=== PATIENT | male | born 1940 | race Caucasian/White ===

== ENCOUNTER 2016-05-09 10:48 | Outpatient (CLI) | payer MEDICARE, OTHER | END 2016-05-09 10:49 | disposition home or self-care (01) | DX: Z00.00 Encounter for general adult medical examination without abnormal findings (principal); R73.01 Impaired fasting glucose; I10 Essential (primary) hypertension; R97.20 Elevated prostate specific antigen [PSA]; E83.52 Hypercalcemia ==

== ENCOUNTER 2020-01-27 08:00 | Outpatient (CLI) | payer MEDICARE, OTHER ==
[2020-01-27 18:12] LABS: BASOPHILS # (AUTO) 0.1 10^3/uL (0.0-0.1); BASOPHILS % (AUTO) 0.9 %; EOSINOPHILS # (AUTO) 0.1 10^3/uL (0.0-0.7); EOSINOPHILS % (AUTO) 1.8 %; HGB - HEMOGLOBIN 16.1 g/dL (14.0-18.0); LYMPHOCYTES # (AUTO) 1.8 10^3/uL (1.5-3.5); LYMPHOCYTES % (AUTO) 23.9 %; MEAN CORPUSCULAR HEMOGLOBIN 34.3 pg (27.0-31.0); MEAN CORPUSCULAR HGB CONC 34.6 g/dL (32.0-36.0); MEAN CORPUSCULAR VOLUME 99.1 fL (80.0-94.0); MEAN PLATELET VOLUME 9.5 fL (7.4-11.4); MONOCYTES # (AUTO) 0.5 10^3/uL (0.0-1.0); MONOCYTES % (AUTO) 6.6 %; NEUTROPHILS # (AUTO) 4.9 10^3/uL (1.5-6.6); NEUTROPHILS % (AUTO) 66.4 %; PLT - PLATELET COUNT 205 10^3/uL (130-450); RED BLOOD COUNT 4.69 10^6/uL (4.70-6.10); RED CELL DISTRIBUTION WIDTH 12.9 % (12.0-15.0); WHITE BLOOD COUNT 7.4 x10^3/uL (4.8-10.8)
[2020-01-27 18:30] LABS: ALBUMIN 4.2 g/dL (3.2-5.5); ALBUMIN/GLOBULIN RATIO 1.6 (1.0-2.2); ALKALINE PHOSPHATASE 45 IU/L (42-121); ALT ALANINE AMINOTRANSFERASE 22 IU/L (10-60); AST ASPARTATE AMINOTRANSFERASE 18 IU/L (10-42); BUN - BLOOD UREA NITROGEN 22 mg/dL (6-20); CARBON DIOXIDE - CO2 28 mmol/L (21-32); CHLORIDE 100 mmol/L (101-111); CHOL/HDL RATIO 2.7 (<5.0); CHOLESTEROL 188 mg/dL; CREATININE 0.8 mg/dL (0.6-1.2); GLUCOSE 100 mg/dL (70-100); HDL CHOLESTEROL 70 mg/dL; LDL CHOLESTEROL,CALCULATED 101 mg/dL; LDL/HDL RATIO 1.4 (<3.6); SODIUM 141 mmol/L (135-145); TOTAL PROTEIN 6.9 g/dL (6.7-8.2); VLDL CHOLESTEROL 17 mg/dL
[2020-01-27 18:58] LABS: HEMOGLOBIN A1c% 5.8 % (4.27-6.07)
== END 2020-01-27 23:59 | disposition home or self-care (01) ==
LOC: LAB.WCP 08:00
PROVIDERS: ATTEND Nurse Practitioner Family
DX: R73.01 Impaired fasting glucose (principal); E83.52 Hypercalcemia; I10 Essential (primary) hypertension
CPT/HCPCS: 36415; 80053; 80061; 83036; 83721; 84443; 85025

== ENCOUNTER 2020-10-06 06:46 | Day surgery (SDC) | payer MEDICARE, OTHER ==
[~2020-10-06 06:46] MED LIST: CYCLOPENTOLATE 1% OPHTH DROPS 2 ML ONE; KETOROLAC 0.45% OPHTH DROPS ONE; PHENYLEPHRINE 2.5% OPHTH 2 ML DROPS ONE; PROPARACAINE 0.5% OPHTH DROPS 15 ML ONE
[2020-10-06] MEDS ORDERED: LACTATED RINGERS 1,000 ML IV ONE (07:36)
--- NOTE | 2020-10-06 07:43 | ANESTHESIA ---
Pre-Anesthesia VS, & Labs - Diagnosis left eye nuclear sclerotic cataract - Procedure left eye cataract extraction with IOL implant Vital Signs: Temp Pulse Resp BP Pulse Ox 36 C L 72 20 139/61 H 98 10/06/20 07:00 10/06/20 07:00 10/06/20 07:00 10/06/20 07:00 10/06/20 07:00 Height: 5 ft 11 in Weight (kg): 85.4 kg Body Mass Index: 26.2 BMI Classification: Overweight - NPO >8 hours Home Medications and Allergies Home Medications: Ambulatory Orders Aspirin [Aspirin EC] 81 mg PO DAILY 10/05/20 Lisinopril [Zestril] 10 mg PO DAILY 10/05/20 Aspirin [Aspirin EC] 81 mg PO DAILY 10/05/20 Lisinopril [Zestril] 10 mg PO DAILY 10/05/20 Allergies/Adverse Reactions: Allergies Allergy/AdvReac Type Severity Reaction Status Date / Time No Known Drug Allergies Allergy Verified 10/06/20 07:41 Anes History & Medical History - Anesthetic History Anesthesia Complications: reports: No previous complications - Medical History Cardiovascular: reports: Hypertension Pulmonary: reports: None Gastrointestinal: reports: None Urinary: reports: None Neuro: reports: None Musculoskeletal: reports: None Endocrine/Autoimmune: reports: None Blood Disorders: reports: None Skin: reports: None Smoking Status: Former smoker Psychosocial: reports: Alcohol History of Cancer?: No - Surgical History Orthopedic: reports: Arthroscopic surgery Exam General: Alert, Oriented x3, Cooperative, No acute distress Dental: Poor dentition Mouth Openin Fingerbreadth Neck Mobility: Normal Mallampati classification: II Thyromental Distance: less than 4 cm Mental/Cognitive Status: Alert/Oriented X3, Normal for patient Plan Anesthesia Type: MAC Consent for Procedure(s) Verified and Reviewed: Yes Code Status: Attempt Resuscitation ASA classification: 2-Mild systemic disease Is this case an emergency?: No
[2020-10-06] MEDS ORDERED: fentaNYL 100 MCG/2 ML VIAL ONE (08:03)
[2020-10-06] MEDS ORDERED: MIDAZOLAM 2 MG/2 ML VIAL ONE (08:03)
[2020-10-06] MEDS ORDERED: BRIMONIDINE 0.2% OPHTH DROPS 5 ML OPTH ONE (08:10)
[2020-10-06] MEDS ORDERED: EPINEPHrine 1 MG/ML AMP IR ONE (08:10)
[2020-10-06] MEDS ORDERED: TIMOLOL 0.5% OPHTH DROPS OPTH ONE (08:10)
[2020-10-06] MEDS ORDERED: CHONDR SULF/HYALURONATE SYRINGE IO ONE (08:10)
[2020-10-06] MEDS ORDERED: PROPARACAINE 0.5% OPHTH DROPS 15 ML EACHEYE ONE (08:11)
[2020-10-06] MEDS ORDERED: TRIAMCIN/MOXIFLOX OPHTHALMIC 0.6 ML VIAL IO ONE ×2 (08:11→08:27)
[2020-10-06] MEDS ORDERED: BSS/LIDOCAINE/EPINEPHRINE 1 ML SYRINGE IO ONE (08:11)
[2020-10-06] MEDS ORDERED: VANCOMYCIN OPHTHALMI 8MG/0.8ML 8 MG/0.8 ML SYRINGE IO ONE ×2 (08:12→08:28)
[2020-10-06] MEDS ORDERED: LACTATED RINGERS 800 ML IV ONE (08:20)
[2020-10-06] MEDS ORDERED: EPINEPHrine 1 MG/ML AMP ONE (08:27)
[2020-10-06] MEDS ORDERED: TIMOLOL 0.5% OPHTH DROPS ONE (08:28)
[2020-10-06] MEDS ORDERED: BSS/LIDOCAINE/EPINEPHRINE 1 ML SYRINGE ONE (08:28)
[2020-10-06] MEDS ORDERED: BRIMONIDINE 0.2% OPHTH DROPS 5 ML ONE (08:28)
--- NOTE | 2020-10-06 08:31 | OPERATIVE REPORT ---
Operative Report - Other Other Information/Narrative: Date of Surgery: 10/06/20 Preop Dx: Visually significant cataract left eye. This was the first cataract surgery. Postop Dx: Same Procedure: Phacoemulsification with posterior chamber toric intraocular lens implant left eye Surgeon: Dr. Dilan Burrell Anesthesia: Monitored anesthesia care Complications: None Operative Indications: This is a 79-year-old M with progressive vision loss in the left eye due to 3-4+ nuclear sclerotic cataract. Best corrected visual acuity was 20/30 with glare to light-perception vision in the left eye. Indications for surgery were: - Overall decrease in vision - Difficulty seeing street signs - Difficulty seeing in low light or at night - Difficulty driving at night because of headlights from other vehicles - Difficulty with glare or bright lights in any situation The patient was consented at length concerning the risks and benefits of cataract surgery after which the patient expressed a desire to proceed with surgery. Operative Procedure: The patients cornea was marked in the pre-surgical area to indicate the axis for the toric intraocular lens. The patient was taken into OR#3 and placed under monitored anesthesia care. A surgical time-out was conducted confirming correct patient, correct procedure, and correct surgical site. The patient was given topical anesthesia and then prepped and draped in the usual sterile fashion. The eye was entered at the 6 and 3 oclock positions. Intracameral Shugarcaine was injected into the anterior chamber followed by a dispersive viscoelastic. A continuous-tear curvilinear capsulorhexis was performed. The nucleus was hydrodissected and phacoemulsified. The cortex was evacuated using automated infusion and aspiration. A cohesive viscoelastic was injected into the capsular bag and a 19.5 diopter toric intraocular lens was inserted into the bag and rotated to axis 092. Infusion and aspiration were used to evacuate the viscoelastic materials from the eye and the IOL was verified to remain on axis. The wounds were hydrated and the eye inflated to physiologic pressure using balanced salt solution. Approximately 0. 25ml of a mixture of triamcinolone and moxifloxacin was injected trans-sclerally into the vitreous in the inferotemporal quadrant using a 30 gauge cannula. An additional 0.55ml of a mixture of triamcinolone, moxifloxacin, and vancomycin was injected subconjunctivally in the superior quadrant for infection and inflammation prophylaxis. Wound integrity was checked with Weck-Jasmin sponges and the IOL axis was once again verified to be on the correct axis. The patient was taken from the operating room in good condition and given post-op instructions.
[2020-10-06 08:43] VITALS: BP 131/53
--- NOTE | 2020-10-06 09:06 | ANESTHESIA POST OP EVALUATION ---
Anesthesia Post Eval - Post Anesthesia Eval Vitals: Last Vital Signs Temp 36.3 C L 10/06/20 08:42 Pulse 72 10/06/20 08:42 Resp 15 10/06/20 08:42 BP 131/53 H 10/06/20 08:42 Pulse Ox 97 10/06/20 08:42 CV Function Including HR & BP: Stable Pain Control: Satisfactory Nausea & Vomiting: Negative Mental Status: Baseline Respiratory Status: Airway Patent Hydration Status: Satisfactory Anesthesia Complications: None
== END 2020-10-06 06:47 | disposition home or self-care (01) ==
LOC: SDS 06:46
PROVIDERS: ATTEND Ophthalmology
DX: H25.12 Age-related nuclear cataract, left eye (principal); Z87.891 Personal history of nicotine dependence
CPT/HCPCS: 66984; A9270; J3490; J7120; V2632; V2787

== ENCOUNTER 2021-03-02 06:56 | Day surgery (SDC) | payer MEDICARE, OTHER ==
[2021-03-02] MEDS ORDERED: LACTATED RINGERS 1,000 ML IV ONE (07:01)
--- NOTE | 2021-03-02 07:57 | ANESTHESIA ---
Pre-Anesthesia VS, & Labs - Diagnosis right eye cataract - Procedure right eye cataract extraction with IOL implant Vital Signs: Temp Pulse Resp BP Pulse Ox 36.3 C L 82 16 144/73 H 99 03/02/21 07:05 03/02/21 07:05 03/02/21 07:05 03/02/21 07:05 03/02/21 07:05 Height: 5 ft 9 in Weight (kg): 84.3 kg Body Mass Index: 27.4 BMI Classification: Overweight - NPO >8 hours Home Medications and Allergies Home Medications: Ambulatory Orders hydroCHLOROthiazide [Hydrodiuril] 25 mg PO DAILY 03/01/21 Aspirin [Aspirin EC] 81 mg PO DAILY 10/05/20 Lisinopril [Zestril] 10 mg PO DAILY 10/05/20 hydroCHLOROthiazide [Hydrodiuril] 25 mg PO DAILY 03/01/21 Allergies/Adverse Reactions: Allergies Allergy/AdvReac Type Severity Reaction Status Date / Time No Known Drug Allergies Allergy Verified 10/06/20 07:41 Anes History & Medical History - Anesthetic History Anesthesia Complications: reports: No previous complications - Medical History Cardiovascular: reports: Hypertension Pulmonary: reports: None Gastrointestinal: reports: None Urinary: reports: None Neuro: reports: None Musculoskeletal: reports: None Endocrine/Autoimmune: reports: None Blood Disorders: reports: None Skin: reports: None Smoking Status: Former smoker Psychosocial: reports: No issues indicated History of Cancer?: No - Surgical History Eyes Ears Nose Throat (EENT): reports: Cataracts Orthopedic: reports: Arthroscopic surgery Exam General: Alert, Oriented x3, Cooperative, No acute distress Dental: WNL Mouth Openin Fingerbreadth Neck Mobility: Normal Mallampati classification: III Thyromental Distance: 4-6 cm Mental/Cognitive Status: Alert/Oriented X3, Normal for patient Plan Anesthesia Type: MAC Consent for Procedure(s) Verified and Reviewed: Yes Code Status: Attempt Resuscitation ASA classification: 2-Mild systemic disease Is this case an emergency?: No
[2021-03-02] MEDS ORDERED: fentaNYL 100 MCG/2 ML VIAL ONE (08:14)
[2021-03-02] MEDS ORDERED: MIDAZOLAM 2 MG/2 ML VIAL ONE (08:14)
[2021-03-02] MEDS ORDERED: BRIMONIDINE 0.2% OPHTH DROPS 5 ML OPTH ONE (08:34)
[2021-03-02] MEDS ORDERED: EPINEPHrine 1 MG/ML AMP IR ONE (08:35)
[2021-03-02] MEDS ORDERED: TRIAMCIN/MOXIFLOX OPHTHALMIC 0.6 ML VIAL IO ONE ×3 (08:35→12:52)
[2021-03-02] MEDS ORDERED: TIMOLOL 0.5% OPHTH DROPS OPTH ONE (08:35)
[2021-03-02] MEDS ORDERED: BSS/LIDOCAINE/EPINEPHRINE 1 ML SYRINGE IO ONE (08:35)
[2021-03-02] MEDS ORDERED: PROPARACAINE 0.5% OPHTH DROPS 15 ML EACHEYE ONE (08:36)
[2021-03-02] MEDS ORDERED: VANCOMYCIN OPHTHALMI 8MG/0.8ML 8 MG/0.8 ML SYRINGE IO ONE (08:36)
[2021-03-02] MEDS ORDERED: LACTATED RINGERS 750 ML IV ONE (08:57)
[2021-03-02 09:19] VITALS: BP 144/52
--- NOTE | 2021-03-02 09:38 | OPERATIVE REPORT ---
Operative Report - Other Other Information/Narrative: Date of Surgery: 03/02/21 Preop Dx: Visually significant cataract right eye. Cataract surgery was performed in the left eye on . Postop Dx: Same Procedure: Phacoemulsification with posterior chamber toric intraocular lens implant right eye Surgeon: Dr. Dilan Burrell Anesthesia: Monitored anesthesia care Complications: None Operative Indications: This is a 80-year-old M with progressive vision loss in the right eye due to 3-4+ nuclear sclerotic cataract. Best corrected visual acuity was 20/30 with glare to light perception vision in the right eye. Indications for surgery were: - Overall decrease in vision - Difficulty seeing words on a computer screen - Difficulty seeing words, closed captions, or game scores on TV - Difficulty driving at night because of headlights from other vehicles - Difficulty with glare or bright lights in any situation The patient was consented at length concerning the risks and benefits of catarac t surgery after which the patient expressed a desire to proceed with surgery. Operative Procedure: The patients cornea was marked in the pre-surgical area to indicate the axis for the toric intraocular lens. The patient was taken into OR#3 and placed under monitored anesthesia care. A surgical time-out was conducted confirming correct patient, correct procedure, and correct surgical site. The patient was given topical anesthesia and then prepped and draped in the usual sterile fashion. The eye was entered at the 6 and 3 oclock positions. Intracameral Shugarcaine was injected into the anterior chamber followed by a dispersive viscoelastic. A continuous-tear curvilinear capsulorhexis was performed. The nucleus was hydrodissected and phacoemulsified. The cortex was evacuated using automated infusion and aspiration. A cohesive viscoelastic was injected into the capsular bag and a 20.0 diopter toric intraocular lens was inserted into the bag and rotated to axis 084. Infusion and aspiration were used to evacuate the viscoelastic materials from the eye and the IOL was verified to remain on axis. The wounds were hydrated and the eye inflated to physiologic pressure using balanced salt solution. Approximately 0.25ml of a mixture of triamcinolone and moxifloxacin was injected trans- sclerally into the vitreous in the inferotemporal quadrant using a 30 gauge cannula. An additional 0.55ml of a mixture of triamcinolone and moxifloxacin was injected subconjunctivally in the superior quadrant for infection and inflammation prophylaxis. Wound integrity was checked with Weck-Jasmin sponges and the IOL axis was once again verified to be on the correct axis. The patient was taken from the operating room in good condition and given post-op instructions.
--- NOTE | 2021-03-02 10:06 | ANESTHESIA POST OP EVALUATION ---
Anesthesia Post Eval - Post Anesthesia Eval Vitals: Last Vital Signs Temp 36.5 C 03/02/21 09:15 Pulse 87 03/02/21 09:15 Resp 18 03/02/21 09:15 BP 144/52 H 03/02/21 09:15 Pulse Ox 99 03/02/21 09:15 CV Function Including HR & BP: Stable Pain Control: Satisfactory Nausea & Vomiting: Negative Mental Status: Baseline Respiratory Status: Airway Patent Hydration Status: Satisfactory Anesthesia Complications: None
[2021-03-02] MEDS ORDERED: BRIMONIDINE 0.2% OPHTH DROPS 5 ML ONE (12:52)
[2021-03-02] MEDS ORDERED: TIMOLOL 0.5% OPHTH DROPS ONE (12:52)
== END 2021-03-02 06:57 | disposition home or self-care (01) ==
LOC: SDS 06:56
PROVIDERS: ATTEND Ophthalmology
DX: H25.11 Age-related nuclear cataract, right eye (principal); Z98.42 Cataract extraction status, left eye; Z87.891 Personal history of nicotine dependence
CPT/HCPCS: 66984; A9270; J3490; J7120; V2632; V2787

== ENCOUNTER 2021-03-02 19:30 | Outpatient (CLI) | payer MEDICARE, OTHER | END 2021-03-02 19:31 | disposition critical access hospital (66) | LOC: EMS 19:30 | DX: S50.311A Abrasion of right elbow, initial encounter (principal); W22.8XXA Striking against or struck by other objects, initial encounter; Y92.009 Unspecified place in unspecified non-institutional (private) residence as the place of occurrence of the external cause; R44.1 Visual hallucinations | CPT/HCPCS: A0425; A0429 ==

== ENCOUNTER 2021-03-02 19:50 | Emergency (ER) | payer MEDICARE, OTHER ==
[2021-03-02 20:29] LABS: BASOPHILS % (AUTO) 0.3 %; EOSINOPHILS # (AUTO) 0.1 10^3/uL (0.0-0.7); EOSINOPHILS % (AUTO) 0.6 %; HGB - HEMOGLOBIN 15.5 g/dL (14.0-18.0); LYMPHOCYTES # (AUTO) 1.1 10^3/uL (1.5-3.5); LYMPHOCYTES % (AUTO) 12.1 %; MEAN CORPUSCULAR HEMOGLOBIN 34.4 pg (27.0-31.0); MEAN CORPUSCULAR HGB CONC 35.2 g/dL (32.0-36.0); MEAN CORPUSCULAR VOLUME 97.6 fL (80.0-94.0); MEAN PLATELET VOLUME 8.8 fL (7.4-11.4); MONOCYTES # (AUTO) 0.6 10^3/uL (0.0-1.0); NEUTROPHILS # (AUTO) 7.6 10^3/uL (1.5-6.6); NEUTROPHILS % (AUTO) 80.7 %; PLT - PLATELET COUNT 186 10^3/uL (130-450); RED BLOOD COUNT 4.51 10^6/uL (4.70-6.10); RED CELL DISTRIBUTION WIDTH 12.7 % (12.0-15.0); WHITE BLOOD COUNT 9.4 x10^3/uL (4.8-10.8)
[2021-03-02 21:00] LABS: ACETAMINOPHEN < 10 ug/mL (10-30); ALBUMIN 4.3 g/dL (3.2-5.5); ALBUMIN/GLOBULIN RATIO 1.7 (1.0-2.2); ALKALINE PHOSPHATASE 48 IU/L (42-121); ALT ALANINE AMINOTRANSFERASE 19 IU/L (10-60); AST ASPARTATE AMINOTRANSFERASE 21 IU/L (10-42); BILIRUBIN,TOTAL 1.7 mg/dL (0.2-1.0); BUN - BLOOD UREA NITROGEN 27 mg/dL (6-20); CALCIUM 9.4 mg/dL (8.5-10.3); CARBON DIOXIDE - CO2 27 mmol/L (21-32); CHLORIDE 99 mmol/L (101-111); CREATININE 0.9 mg/dL (0.6-1.2); ETOH - ETHANOL < 5.0 mg/dL; GFR - MDRD 81 (>89); GLUCOSE 120 mg/dL (70-100); LIPASE 20 U/L (22-51); POTASSIUM 4.1 mmol/L (3.5-5.0); SALICYLATE < 6.0 mg/dL; SODIUM 139 mmol/L (135-145); TOTAL PROTEIN 6.8 g/dL (6.7-8.2)
--- NOTE | 2021-03-02 22:33 | CT Report ---
PROCEDURE: HEAD WO INDICATIONS: Altered mental status. LOC after fall TECHNIQUE: Noncontrast 4.5 mm thick angled axial sections acquired from the foramen magnum to the vertex. For r adiation dose reduction, the following was used: automated exposure control, adjustment of mA and/or kV according to patient size. COMPARISON: None. FINDINGS: Image quality: Excellent. CSF spaces: Basal cisterns are patent. No extra-axial fluid collections. Ventricles are prominent. Brain: No midline shift. No intracranial masses or hemorrhage. No area of hypodensity in a large va scular distribution to suggest acute infarction. Periventricular hypodensity consistent with chronic microvascular ischemic disease. Age related, loss. Skull and face: Calvarium and visualized facial bones are intact, without suspicious lesions. Sinuses: Visualized sinuses and mastoids are clear. IMPRESSION: No acute intracranial abnormality. Reviewed by: Sharad Azevedo MD on 03/02/2021 10:32 PM PST Approved by: Sharad Azevedo MD on 03/02/2021 10:32 PM PST Station ID: [id number]
--- NOTE | 2021-03-02 22:38 | ED Physician Documentation ---
PD HPI ALTERED MENTAL STATUS - Stated complaint Stated Complaint: AMS - Chief complaint Chief Complaint: Neuro - History obtained from History obtained from: Patient - History of Present Illness Timing - onset: Today Timing - duration: Hours Timing - details: Gradual onset, Still present Quality / character: Confused, Disoriented, Hallucinating Associated symptoms: No: Fever, Headache, Stiff neck, Dyspnea, Cough, NVD, Urinary sx, General weakness, Focal weakness, Seizure activity, Syncope Contributing factors: Other (had cataract surgery this morning) Basline status: Alert and oriented X 3, Ambulatory, Independent Similar symptoms before: Diagnosis (had symptoms once previously 12 years ago related to medications) Recently seen: Surgery - Additional information Additional information: 80-year-old male with history of depression and hypertension had a cataract surgery done on his right eye this morning and he received some Versed for that. He apparently did well with this and was taken home by his [id number]. The patient states that he was at his home this afternoon and noted that his was sitting with a blank stare and she would not respond to them. He states that he went outside to find help and knocked on the neighbors door and they called 911 as they were aware that his had been for maybe 20 years. The patient states he knows she is having some hallucination he is having some trouble with his memory today and he does not have a prior history of dementia to our knowledge. Indicates he has had a similar incident may be 12 years ago. Review of Systems Constitutional: denies: Fever Eyes: reports: Decreased vision (in right eye recovering from surgery) Ears: denies: Ear pain Nose: denies: Rhinorrhea / runny nose, Congestion Throat: denies: Sore throat Cardiac: denies: Chest pain / pressure, Palpitations Respiratory: denies: Dyspnea, Cough GI: denies: Abdominal Pain, Nausea, Vomiting : denies: Dysuria Skin: denies: Rash Musculoskeletal: denies: Neck pain, Back pain, Extremity pain Neurologic: denies: Generalized weakness, Focal weakness, Numbness Psychiatric: reports: Depressed, Hallucinations, Anxiety. denies: Suicidal, Homicidal PD PAST MEDICAL HISTORY - Past Medical History Past Medical History: Yes Cardiovascular: Hypertension Respiratory: None Neuro: None Endocrine/Autoimmune: None GI: None : None HEENT: None Psych: None Musculoskeletal: None Derm: None - Past Surgical History Past Surgical History: Yes Ortho: Arthroscopic surgery HEENT: Cataracts - Present Medications Home Medications: Ambulatory Orders Medication Instructions Recorded Confirmed Aspirin [Aspirin EC] 81 mg PO DAILY 10/05/20 03/02/21 Lisinopril [Zestril] 10 mg PO DAILY 10/05/20 03/02/21 hydroCHLOROthiazide [Hydrodiuril] 25 mg PO DAILY 03/01/21 03/02/21 - Allergies Allergies/Adverse Reactions: Allergies Allergy/AdvReac Type Severity Reaction Status Date / Time No Known Drug Allergies Allergy Verified 03/02/21 20:05 - Social History Does the pt smoke?: No Smoking Status: Former smoker Does the pt drink ETOH?: Yes Does the pt have substance abuse?: No PD ED PE NORMAL - Vitals Vital signs reviewed: Yes (wide pulse pressure ) - General General: Alert and oriented X 3, No acute distress, Well developed/nourished - HEENT HEENT: Atraumatic, Other (right eye is dilated) - Neck Neck: Supple, no meningeal sign, No bony TTP - Cardiac Cardiac: RRR, No murmur - Respiratory Respiratory: No respiratory distress, Clear bilaterally - Abdomen Abdomen: Soft, Non tender - Back Back: No CVA TTP, No spinal TTP - Derm Derm: Normal color, No rash - Extremities Extremities: No deformity, No edema - Neuro Neuro: Alert and oriented X 3, supervisor burling and joining 2-12 intact, No motor deficit, No sensory deficit, Normal speech Eye Opening: Spontaneous Motor: Obeys Commands Verbal: Oriented GCS Score: 15 - Psych Psych: Normal mood, Normal affect Results - Vitals Vitals: Vital Signs - 24 hr 03/02/21 03/02/21 03/03/21 19:58 22:38 00:00 Temperature 36.4 C L Heart Rate 89 94 79 Respiratory 17 19 17 Rate Blood Pressure 100/49 L 138/117 H 113/65 O2 Saturation 95 100 96 03/03/21 03/03/21 03/03/21 02:00 04:00 06:00 Temperature Heart Rate 75 76 89 Respiratory 16 17 20 Rate Blood Pressure 114/48 L 142/86 H 163/108 H O2 Saturation 98 98 98 03/03/21 07:35 Temperature Heart Rate 88 Respiratory 21 Rate Blood Pressure 158/71 H O2 Saturation 96 Oxygen O2 Source Room air - EKG (time done) 2111 Rate: Rate (enter#) (72) Rhythm: NSR [place]: Anterior hemiblock Intervals: RBBB Compare to prior EKG: Old EKG unavailable Computer interpretation: Agree with computer - Labs Labs: Laboratory Tests 03/02/21 03/02/21 03/02/21 20:24 20:24 20:24 WBC 9.4 RBC 4.51 L Hgb 15.5 Hct 44.0 MCV 97.6 H MCH 34.4 H MCHC 35.2 RDW 12.7 Plt Count 186 MPV 8.8 Neut # (Auto) 7.6 H Lymph # (Auto) 1.1 L Fajardo # (Auto) 0.6 Eos # (Auto) 0.1 Baso # (Auto) 0.0 Absolute Nucleated RBC 0.00 Nucleated RBC % 0.0 Sodium 139 Potassium 4.1 Chloride 99 L Carbon Dioxide 27 Anion Gap 13.0 BUN 27 H Creatinine 0.9 Estimated GFR (MDRD) 81 L Glucose 120 H Calcium 9.4 Total Bilirubin 1.7 H AST 21 ALT 19 Alkaline Phosphatase 48 Total Protein 6.8 Albumin 4.3 Globulin 2.5 Albumin/Globulin Ratio 1.7 Lipase 20 L TSH 0.95 Urine Color Urine Clarity Urine pH Ur Specific [place] Urine Protein Urine Glucose (UA) Urine Ketones Urine Occult Blood Urine Nitrite Urine Bilirubin Urine Urobilinogen Ur Leukocyte Esterase Ur Microscopic Review Urine Culture Comments Salicylates < 6.0 Urine Opiates Screen Ur Oxycodone Screen Urine Methadone Screen Ur Propoxyphene Screen Acetaminophen < 10 L Ur Barbiturates Screen Ur Tricyclics Screen Ur Phencyclidine Scrn Ur Amphetamine Screen U Methamphetamines Scrn U Benzodiazepines Scrn Urine Cocaine Screen U Cannabinoids Screen Ethyl Alcohol < 5.0 03/03/21 00:35 WBC RBC Hgb Hct MCV MCH MCHC RDW Plt Count MPV Neut # (Auto) Lymph # (Auto) Fajardo # (Auto) Eos # (Auto) Baso # (Auto) Absolute Nucleated RBC Nucleated RBC % Sodium Potassium Chloride Carbon Dioxide Anion Gap BUN Creatinine Estimated GFR (MDRD) Glucose Calcium Total Bilirubin AST ALT Alkaline Phosphatase Total Protein Albumin Globulin Albumin/Globulin Ratio Lipase TSH Urine Color YELLOW Urine Clarity CLEAR Urine pH 5.5 Ur Specific [place] >=1.030 H Urine Protein NEGATIVE Urine Glucose (UA) NEGATIVE Urine Ketones >=80 H Urine Occult Blood NEGATIVE Urine Nitrite NEGATIVE Urine Bilirubin NEGATIVE Urine Urobilinogen 1 (NORMAL) Ur Leukocyte Esterase NEGATIVE Ur Microscopic Review NOT INDICATED Urine Culture Comments NOT INDICATED Salicylates Urine Opiates Screen NEGATIVE Ur Oxycodone Screen NEGATIVE Urine Methadone Screen NEGATIVE Ur Propoxyphene Screen NEGATIVE Acetaminophen Ur Barbiturates Screen NEGATIVE Ur Tricyclics Screen NEGATIVE Ur Phencyclidine Scrn NEGATIVE Ur Amphetamine Screen NEGATIVE U Methamphetamines Scrn NEGATIVE U Benzodiazepines Scrn NEGATIVE Urine Cocaine Screen NEGATIVE U Cannabinoids Screen NEGATIVE Ethyl Alcohol - Rads (name of study) head cT Radiology: Prelim report reviewed (Impression: No acute intracranial abnormality.), EMP read indepedently, See rad report PD MEDICAL DECISION MAKING - ED course Complexity details: reviewed results, re-evaluated patient, considered differential, d/w patient ED course: 80 y/o male with confusion after a surgical procedure has been brought to the hospital by ambulance with hallucinations. He is able to answer person place time and president with some effort. He does appear to have some speech latency and delay in execution of motor commands. He was able to speak to his son who has requested we keep him overnight in the ED to see the case management social worker for additional resources. We obtained CT of the head and baseline blood work and administered IV saline. At shift change the patients care is turned over to Dr. Plasencia pending evaluation by case management social worker. Departure - Departure Clinical Impression: Altered mental status Qualifiers: Altered mental status type: disorientation Qualified Code(s): R41.0 - Disorientation, unspecified Condition: Stable Instructions: ED Confusion Follow-Up: HAYDEN Maed [Provider Group]
[2021-03-03 00:42] LABS: MUDS CUTOFF CONCENTRATIONS CUTOFF CONC BELOW:
[2021-03-03 00:43] LABS: BILIRUBIN,URINE NEGATIVE (NEGATIVE); GLUCOSE, URINE (UA) NEGATIVE (NEGATIVE); KETONES,URINE (UA) >=80 mg/dL (NEGATIVE); LEUKOCYTE ESTERASE, URINE NEGATIVE (NEGATIVE); NITRITE,URINE NEGATIVE (NEGATIVE); OCCULT BLOOD,URINE NEGATIVE (NEGATIVE); PH,URINE 5.5 PH (5.0-7.5); PROTEIN,URINE NEGATIVE (NEGATIVE); UROBILINOGEN,URINE 1 (NORMAL) E.U./dL (NORMAL)
[2021-03-03 00:44] LABS: CLARITY,URINE CLEAR (CLEAR)
[2021-03-03 00:54] LABS: AMPHETAMINE SCREEN,URINE NEGATIVE (NEGATIVE); BARBITURATE SCREEN,UR NEGATIVE (NEGATIVE); BENZODIAZEPINES SCREEN, URINE NEGATIVE (NEGATIVE); COCAINE SCREEN URINE NEGATIVE (NEGATIVE); METHADONE SCREEN, URINE NEGATIVE (NEGATIVE); METHAMPHETAMINES SCREEN, URINE NEGATIVE (NEGATIVE); OPIATE SCREEN, URINE NEGATIVE (NEGATIVE); OXYCODONE SCREEN, URINE NEGATIVE (NEGATIVE); PROPOXYPHENE SCREEN, URINE NEGATIVE (NEGATIVE); THC CANNABINOID SCREEN, URINE NEGATIVE (NEGATIVE); TRICYCLIC ANTIDEPRESSANT,URINE NEGATIVE (NEGATIVE)
[2021-03-03] MEDS: SODIUM CHLORIDE 0.9% 1,000 ML IV STA (02:49)
[2021-03-03 07:35] VITALS: BP 158/71
[2021-03-03] MEDS: ACETAMINOPHEN 325 MG TABLET PO STA (12:07)
[2021-03-03] MEDS: DROPERIDOL 5 MG/2 ML VIAL IM STA (12:07)
== END 2021-03-03 12:40 | disposition home or self-care (01) ==
LOC: EDUNIT# → ED 19:50
DX: R41.82 Altered mental status, unspecified (principal); I10 Essential (primary) hypertension; Z87.891 Personal history of nicotine dependence; I45.2 Bifascicular block
CPT/HCPCS: 36415; 70450; 80053; 80306; 80307; 81003; 83690; 84443; 85025; 93005; 96360; 99284; A9270; G0480; 80320; 80329; 81001; 87086

== ENCOUNTER 2021-06-06 12:54 | Outpatient (CLI) | payer MEDICARE, OTHER ==
[2021-06-06 18:07] LABS: BASOPHILS # (AUTO) 0.1 10^3/uL (0.0-0.1); BASOPHILS % (AUTO) 0.9 %; EOSINOPHILS # (AUTO) 0.2 10^3/uL (0.0-0.7); EOSINOPHILS % (AUTO) 2.7 %; HCT - HEMATOCRIT 48.2 % (42.0-52.0); HGB - HEMOGLOBIN 16.6 g/dL (14.0-18.0); LYMPHOCYTES # (AUTO) 1.5 10^3/uL (1.5-3.5); LYMPHOCYTES % (AUTO) 26.2 %; MEAN CORPUSCULAR HEMOGLOBIN 32.7 pg (27.0-31.0); MEAN CORPUSCULAR HGB CONC 34.4 g/dL (32.0-36.0); MEAN CORPUSCULAR VOLUME 95.1 fL (80.0-94.0); MEAN PLATELET VOLUME 9.6 fL (7.4-11.4); MONOCYTES # (AUTO) 0.4 10^3/uL (0.0-1.0); MONOCYTES % (AUTO) 6.7 %; NEUTROPHILS # (AUTO) 3.6 10^3/uL (1.5-6.6); NEUTROPHILS % (AUTO) 63.1 %; PLT - PLATELET COUNT 213 10^3/uL (130-450); RED BLOOD COUNT 5.07 10^6/uL (4.70-6.10); RED CELL DISTRIBUTION WIDTH 12.2 % (12.0-15.0); WHITE BLOOD COUNT 5.6 x10^3/uL (4.8-10.8)
[2021-06-06 18:08] LABS: CREATININE,URINE 108.2 mg/dL; MICROALBUM/CREATININE RATIO,UR 18.5 ug/mg (<30.0)
[2021-06-06 18:16] LABS: ALBUMIN 4.3 g/dL (3.2-5.5); ALBUMIN/GLOBULIN RATIO 1.5 (1.0-2.2); ALKALINE PHOSPHATASE 68 IU/L (42-121); ALT ALANINE AMINOTRANSFERASE 21 IU/L (10-60); AST ASPARTATE AMINOTRANSFERASE 21 IU/L (10-42); BILIRUBIN,TOTAL 1.2 mg/dL (0.2-1.0); BUN - BLOOD UREA NITROGEN 22 mg/dL (6-20); CALCIUM 9.5 mg/dL (8.5-10.3); CARBON DIOXIDE - CO2 29 mmol/L (21-32); CHLORIDE 101 mmol/L (101-111); CHOL/HDL RATIO 2.5 (<5.0); CHOLESTEROL 175 mg/dL; CREATININE 0.8 mg/dL (0.6-1.2); GFR - MDRD 93 (>89); GLUCOSE 109 mg/dL (70-100); HDL CHOLESTEROL 70 mg/dL; LDL CHOLESTEROL,CALCULATED 93 mg/dL; LDL/HDL RATIO 1.3 (<3.6); SODIUM 140 mmol/L (135-145); TOTAL PROTEIN 7.1 g/dL (6.7-8.2); TRIGLYCERIDES 61 mg/dL; VLDL CHOLESTEROL 12 mg/dL
[2021-06-06 18:36] LABS: THYROID STIMULATING HORMONE 0.77 uIU/mL (0.34-5.60)
[2021-06-06 20:57] LABS: ESTIMATED AVERAGE GLUCOSE 120 mg/dL (70-100); HEMOGLOBIN A1c% 5.8 % (4.27-6.07)
== END 2021-06-06 12:55 | disposition home or self-care (01) ==
LOC: LAB.N 12:54
PROVIDERS: ATTEND Internal Medicine
DX: I10 Essential (primary) hypertension (principal); D75.89 Other specified diseases of blood and blood-forming organs; R73.01 Impaired fasting glucose; F32.A Depression, unspecified
CPT/HCPCS: 36415; 80053; 80061; 82043; 82570; 83036; 83721; 84443; 85025

== ENCOUNTER 2022-07-31 08:50 | Outpatient (CLI) | payer MEDICARE, OTHER | END 2022-07-31 23:59 | disposition short-term general hospital (02) | LOC: EMS 08:50 | DX: R53.1 Weakness (principal); R20.0 Anesthesia of skin | CPT/HCPCS: A0425; A0429; A0888 ==

== ENCOUNTER 2022-08-11 17:29 | Outpatient (CLI) | payer MEDICARE, OTHER | END 2022-08-11 23:59 | disposition critical access hospital (66) | LOC: EMS 17:29 | DX: Z43.1 Encounter for attention to gastrostomy (principal); R41.0 Disorientation, unspecified; S40.021A Contusion of right upper arm, initial encounter; W06.XXXA Fall from bed, initial encounter; Y92.122 Bedroom in nursing home as the place of occurrence of the external cause | CPT/HCPCS: A0425; A0429 ==

== ENCOUNTER 2022-08-11 17:36 | Emergency (ER) | payer MEDICARE, OTHER ==
--- NOTE | 2022-08-11 17:40 | ED Physician Documentation ---
History of Present Illness - Stated complaint Stated Complaint: FALL - History obtained from History obtained from: Patient, EMS - Additonal information Additional information: 81-year-old gentleman presents from [facility]. 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 He fell out of bed today. He is a somewhat poor historian but remembers the fall. States he was reaching for the remote control which was on a bedside table and it was just too far and he fell out of bed. He does not feel injured at all. I did call and talk to the nurse at [facility] and his specific concerns were that his arm is swollen and tender on the right. And his PEG tube got yanked as his tube feeds were hooked up at the time. PD PAST MEDICAL HISTORY - Past Medical History Cardiovascular: Hypertension Respiratory: None Neuro: None Endocrine/Autoimmune: None GI: None : None HEENT: None Psych: None Musculoskeletal: None Derm: None - Past Surgical History Past Surgical History: Yes Ortho: Arthroscopic surgery HEENT: Cataracts - Present Medications Home Medications: Ambulatory Orders Medication Instructions Recorded Confirmed Aspirin [Aspirin EC] 81 mg PO DAILY 10/05/20 08/11/22 Lisinopril [Zestril] 10 mg PO DAILY 10/05/20 08/11/22 Carbidopa/Levodopa 2 tab PO TID 08/11/22 08/11/22 [Carbidopa-Levodopa 25-100 Tab] - Allergies Allergies/Adverse Reactions: Allergies Allergy/AdvReac Type Severity Reaction Status Date / Time No Known Drug Allergies Allergy Verified 08/11/22 17:50 - Social History Does the pt smoke?: No Smoking Status: Former smoker Does the pt drink ETOH?: Yes Does the pt have substance abuse?: No PD ED PE NORMAL - Vitals Vital signs reviewed: Yes - General General: Other (Mildly slow to answer questions, unaware of the date.) - HEENT HEENT: PERRL, EOMI - Neck Neck: Supple, no meningeal sign, No bony TTP, No bruit - Cardiac Cardiac: RRR, No murmur - Respiratory Respiratory: No respiratory distress, Clear bilaterally - Abdomen Abdomen: Non tender, Other (PEG tube in the epigastrium looking visibly okay.) - Back Back: No CVA TTP, No spinal TTP - Derm Derm: Normal color, Warm and dry - Extremities Extremities: Other (From the supracondylar area down to the wrist on the right there is significant swelling and discoloration of the right arm. Has some difficulty with range of motion.) - Neuro Eye Opening: Spontaneous Motor: Obeys Commands Verbal: Confused GCS Score: 14 Results - Vitals Vitals: Vital Signs - 24 hr 08/11/22 08/11/22 17:41 20:18 Temperature 36.9 C Heart Rate 78 74 Respiratory 16 Rate Blood Pressure 119/74 120/65 O2 Saturation 98 97 Oxygen O2 Source 3 - Rads (name of study) X-rays of the right humerus, forearm, CT of the head and cervical spine were without trauma. Relevant Findings:: Final report received, EMP independent interpretation of test PD Medical Decision Making - ED course ED course: 81-year-old gentleman presents from SNF for concern for arm injury after falling from bed. Also concern for head injury and PEG tube displacement. CT of the head, C-spine, abdomen, and x-rays of the right humerus and forearm were negative but noting he has obstipation and a lung nodule needing follow-up in 12 months. This was mentioned to the patient and put on his discharge instructions. Prior to discharge his son arrived to the bedside and requested a POLST and this was filled out and signed by me with his input. We did discuss the need for follow-up CT if that was within the goals of care. Departure - Departure Disposition: 01 Home, Self Care Clinical Impression: Parkinsons, Pulmonary nodule Contusion of right arm Qualifiers: Encounter type: initial encounter Qualified Code(s): S40.021A - Contusion of right upper arm, initial encounter Fall from bed Qualifiers: Encounter type: initial encounter Qualified Code(s): W06.XXXA - Fall from bed, initial encounter Head injury Qualifiers: Encounter type: initial encounter Qualified Code(s): S09.90XA - Unspecified injury of head, initial encounter Pain around PEG tube site Qualifiers: Encounter type: initial encounter Qualified Code(s): T85.848A - Pain due to other internal prosthetic devices, implants and grafts, initial encounter Condition: Stable Record reviewed to determine appropriate education?: Yes Instructions: ED Head Injury Closed Comments: X-rays of the right humerus, forearm, CT of the head and cervical spine were without trauma. PEG tube looking fine on CT. He does have a right lung nodule and they recommend repeat CT in [address] of the abdomen pelvis also showing obstipation probably could use a laxative if he has 1 ordered. Discharge Date/Time: 08/11/22 20:22
[2022-08-11] MEDS ORDERED: CARBIDOPA/LEVODOPA 25 MG/100 MG TABLET PEG STA (17:44)
--- NOTE | 2022-08-11 18:28 | CT Report ---
PROCEDURE: HEAD WO INDICATIONS: fall poss head inj TECHNIQUE: Noncontrast 4.5 mm thick angled axial sections acquired from the foramen magnum to the vertex. For r adiation dose reduction, the following was used: automated exposure control, adjustment of mA and/or kV according to patient size. COMPARISON: 03/02/2021. FINDINGS: Image quality: Diagnostic. Limited secondary to patient motion artifact. CSF spaces: Basal cisterns are patent. No extra-axial fluid collections. Ventricles are normal in size and shape. Brain: No midline shift. No intracranial masses or hemorrhage. [place]end[place]-white matter interface is norm al. Skull and face: Calvarium and visualized facial bones are intact, without suspicious lesions. Sinuses: Visualized sinuses and mastoids are clear. IMPRESSION: CT head without acute intracranial abnormalities. Age-related senescent changes and sequela of chroni c small vessel ischemic disease. No acute calvarial fracture. Reviewed by: Marcus Fowler MD on 08/11/2022 6:27 PM PDT Approved by: Marcus Fowler MD on 08/11/2022 6:27 PM PDT Station ID: [id number]
--- NOTE | 2022-08-11 18:31 | CT Report ---
PROCEDURE: CERVICAL SPINE WO INDICATIONS: fall poss head inj TECHNIQUE: Noncontrast 3 mm thick sections acquired from the skull base to the T4 level. Sagittal and coronal r eformats were then constructed. For radiation dose reduction, the following was used: automated exp osure control, adjustment of mA and/or kV according to patient size. COMPARISON: None. FINDINGS: Image quality: Diagnostic. Bones: No acute fractures or dislocations. No acute compression fractures of the vertebral bodies. Craniocervical junction is intact. C1-C2 relationship is preserved. Visualized superior ribs are inta ct. Moderate multilevel cervical spondylosis most severe at C5-6 through C7-T1 Soft tissues: Prevertebral soft tissues are normal in thickness. No paravertebral hematomas. No ap ical pneumothoraces. IMPRESSION: CT cervical spine without acute fracture or traumatic malalignment. Moderate multilevel cervical spondylosis. Reviewed by: Marcus Fowler MD on 08/11/2022 6:30 PM PDT Approved by: Marcus Fowler MD on 08/11/2022 6:30 PM PDT Station ID: [id number]
--- NOTE | 2022-08-11 18:33 | XRAY Report ---
PROCEDURE: Forearm RT INDICATIONS: arm injury TECHNIQUE: 2 views of the forearm were acquired. COMPARISON: None FINDINGS: Bones: No acute fractures or dislocations. No suspicious bony lesions. Degenerative changes of the right elbow. Chronic calcification over the lateral epicondyle. Soft tissues: No suspicious soft tissue calcifications or masses. Diffuse soft tissue swelling of t he right forearm. IMPRESSION: Soft tissue swelling of the right forearm. No underlying fracture or dislocation. If there is persistent clinical concern for a radiographically occult fracture, recommend immobilizat ion and repeat imaging in 10 to 14 days. Reviewed by: Marcus Fowler MD on 08/11/2022 6:32 PM PDT Approved by: Marcus Fowler MD on 08/11/2022 6:32 PM PDT Station ID: [id number]
--- NOTE | 2022-08-11 18:35 | XRAY Report ---
PROCEDURE: Humerus RT INDICATIONS: arm injury TECHNIQUE: 3 views of the humerus were acquired. COMPARISON: None. FINDINGS: Bones: No fractures or dislocations. No suspicious bony lesions. Moderate degenerative changes of the right elbow and shoulder. 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 Soft tissues: No suspicious soft tissue calcifications or masses. No definite joint effusion seen. IMPRESSION: Right humerus without fracture or dislocation. If there is persistent clinical concern for a radiographically occult fracture, recommend immobilizat ion and repeat imaging in 10 to 14 days. Reviewed by: Marcus Fowler MD on 08/11/2022 6:33 PM PDT Approved by: Marcus Fowler MD on 08/11/2022 6:33 PM PDT Station ID: [id number]
--- NOTE | 2022-08-11 19:05 | CT Report ---
PROCEDURE: ABDOMEN/PELVIS WO INDICATIONS: peg tube yanked TECHNIQUE: Noncontrast 5 mm thick sections acquired from the diaphragms to the symphysis. 5 mm coronal and sagi ttal reformats were then performed. For radiation dose reduction, the following was used: automated exposure control, adjustment of mA and/or kV according to patient size. COMPARISON: None. FINDINGS: Image quality: Excellent. Lung bases and heart: Small bilateral pleural effusions. Dense airspace opacity at the left lung base . 9 mm nodule in the right posterior lung base. Liver: Several hepatic hypodensities. Cannot exclude solid lesion. Gallbladder and biliary tree: The gallbladder and biliary tree are normal. Spleen: Normal. Pancreas: Normal. Adrenals: No adrenal nodule. Kidneys and ureters: Punctate nonobstructing bilateral intrarenal calculi. No hydronephrosis. Indeter minant left posterior renal cystic mass. Bowel and peritoneum: PEG tube balloon is in expected location of the gastric antrum. The stomach rem ains closely apposed to the anterior abdominal wall. Small bowel loops are normal. There is solid sto ol and contrast throughout the colon. There are diverticula in the proximal colon. Increased quantity of rectal stool. Normal appendix. Lymph nodes: No central or retroperitoneal adenopathy. Vessels: No infrarenal aortic aneurysm. PELVIS Reproductive organs: Mild prostatomegaly. Bladder: No abnormal wall thickening, accounting for underdistension. Pelvic lymph nodes: No pelvic adenopathy by size criteria. Bones: No aggressive osseous abnormality. Other: Small bilateral fat-containing inguinal hernias. IMPRESSION: 1. Expected location and appearance of percutaneous gastrostomy tube. 2. Rectal obstipation. 3. Punctate nonobstructing bilateral intrarenal calculi. 4. Right lung base nodule. Follow-up in 12 months recommended. Reviewed by: Mary Jane Mcfarland MD on 08/11/2022 6:03 PM SARAH Approved by: Mary Jane Mcfarland MD on 08/11/2022 6:03 PM SARAH Station ID: [id number]
[2022-08-11 20:22] VITALS: BP 120/65
== END 2022-08-11 20:22 | disposition home or self-care (01) ==
LOC: EDUNIT# → ED 17:36
DX: S40.021A Contusion of right upper arm, initial encounter (principal); S09.90XA Unspecified injury of head, initial encounter; T85.848A Pain due to other internal prosthetic devices, implants and grafts, initial encounter; W06.XXXA Fall from bed, initial encounter; I10 Essential (primary) hypertension; Z87.891 Personal history of nicotine dependence
CPT/HCPCS: 70450; 72125; 73060; 73090; 74176; 99283; 99284; A9270

== ENCOUNTER 2022-08-11 20:19 | Outpatient (CLI) | payer MEDICARE, OTHER | END 2022-08-11 23:59 | LOC: EMS 20:19 | PROVIDERS: ATTEND Emergency Medicine | DX: Z43.1 Encounter for attention to gastrostomy (principal); R41.0 Disorientation, unspecified | CPT/HCPCS: A0425; A0428 ==

== ENCOUNTER 2022-08-17 11:18 | Outpatient (CLI) | payer MEDICARE, OTHER | END 2022-08-17 11:19 | disposition home or self-care (01) | LOC: LAB.R 11:18 | PROVIDERS: ATTEND Registered Nurse | DX: S51.001A Unspecified open wound of right elbow, initial encounter (principal) | CPT/HCPCS: 87070; 87181; 87205 ==

== ENCOUNTER 2022-08-18 08:00 | Outpatient (CLI) | payer MEDICARE, OTHER ==
[2022-08-18 08:19] LABS: BASOPHILS # (AUTO) 0.1 10^3/uL (0.0-0.1); BASOPHILS % (AUTO) 0.7 %; EOSINOPHILS # (AUTO) 0.2 10^3/uL (0.0-0.7); EOSINOPHILS % (AUTO) 1.9 %; HCT - HEMATOCRIT 43.5 % (42.0-52.0); HGB - HEMOGLOBIN 14.9 g/dL (14.0-18.0); LYMPHOCYTES # (AUTO) 1.3 10^3/uL (1.5-3.5); LYMPHOCYTES % (AUTO) 15.7 %; MEAN CORPUSCULAR HEMOGLOBIN 32.6 pg (27.0-31.0); MEAN CORPUSCULAR HGB CONC 34.3 g/dL (32.0-36.0); MEAN CORPUSCULAR VOLUME 95.2 fL (80.0-94.0); MEAN PLATELET VOLUME 9.4 fL (7.4-11.4); MONOCYTES # (AUTO) 0.8 10^3/uL (0.0-1.0); MONOCYTES % (AUTO) 9.3 %; PLT - PLATELET COUNT 340 10^3/uL (130-450); RED BLOOD COUNT 4.57 10^6/uL (4.70-6.10); RED CELL DISTRIBUTION WIDTH 13.1 % (12.0-15.0); WHITE BLOOD COUNT 8.4 x10^3/uL (4.8-10.8)
== END 2022-08-18 23:59 | disposition home or self-care (01) ==
LOC: LAB.R 08:00
PROVIDERS: ATTEND Registered Nurse
DX: D64.9 Anemia, unspecified (principal); M62.82 Rhabdomyolysis
CPT/HCPCS: 85025; 85651; 86140

== ENCOUNTER 2022-08-20 07:11 | Outpatient (CLI) | payer MEDICARE, OTHER | END 2022-08-20 23:59 | disposition other institution (70) | LOC: EMS 07:11 | DX: Z43.1 Encounter for attention to gastrostomy (principal) | CPT/HCPCS: A0425; A0429 ==

== ENCOUNTER 2022-08-20 07:21 | Emergency (ER) | payer MEDICARE, OTHER ==
[2022-08-20 07:57] LABS: BILIRUBIN,URINE NEGATIVE (NEGATIVE); GLUCOSE, URINE (UA) NEGATIVE (NEGATIVE); KETONES,URINE (UA) NEGATIVE (NEGATIVE); LEUKOCYTE ESTERASE, URINE NEGATIVE (NEGATIVE); NITRITE,URINE NEGATIVE (NEGATIVE); OCCULT BLOOD,URINE NEGATIVE (NEGATIVE); PH,URINE 6.5 PH (5.0-7.5); PROTEIN,URINE NEGATIVE (NEGATIVE); UROBILINOGEN,URINE 4 E.U./dL (NORMAL)
[2022-08-20 08:07] LABS: CLARITY,URINE CLEAR (CLEAR)
--- NOTE | 2022-08-20 08:14 | ED Physician Documentation ---
History of Present Illness - Stated complaint Stated Complaint: FEEDING TUBE ISSUE - Chief complaint Chief Complaint: General - History obtained from History obtained from: Patient, EMS - Additonal information Additional information: The patient is sent to the emergency department from [facility] by EMS for chief complaint of feeding tube coming out. It is not clear exactly what happened but somehow, traction was applied to the tube and it slipped out. The staff placed a Carlos catheter in the ostomy site to keep it patent. They have also noted that the patient seems to be urinating more frequently and were concerned perhaps he might of a UTI. He has not apparently had fevers and no significant mental status changes, other than seeming intermittently a little more confused. He has had no other symptoms of illness, according to staff. The patient has no complaints whatsoever. PD PAST MEDICAL HISTORY - Past Medical History Past Medical History: Yes Cardiovascular: Hypertension Respiratory: None Neuro: None Endocrine/Autoimmune: None GI: None : None HEENT: None Psych: None Musculoskeletal: None Derm: None - Past Surgical History Past Surgical History: Yes Ortho: Arthroscopic surgery HEENT: Cataracts - Present Medications Home Medications: Ambulatory Orders Medication Instructions Recorded Confirmed Aspirin [Aspirin EC] 81 mg PO DAILY 10/05/20 08/11/22 Lisinopril [Zestril] 10 mg PO DAILY 10/05/20 08/11/22 Carbidopa/Levodopa 2 tab PO TID 08/11/22 08/11/22 [Carbidopa-Levodopa 25-100 Tab] - Allergies Allergies/Adverse Reactions: Allergies Allergy/AdvReac Type Severity Reaction Status Date / Time No Known Drug Allergies Allergy Verified 08/11/22 17:50 - Social History Does the pt smoke?: No Smoking Status: Never smoker Does the pt drink ETOH?: Yes Does the pt have substance abuse?: No PD ED PE NORMAL - Vitals Vital signs reviewed: Yes - General General: No acute distress, Well developed/nourished, Other (Alert and appropriate) - HEENT HEENT: Atraumatic, PERRL, EOMI, Moist mucous membranes - Neck Neck: Supple, no meningeal sign - Respiratory Respiratory: No respiratory distress - Abdomen Abdomen: Soft, Non tender, Non distended, Other (Ostomy site overlying stomach which appears healthy and intact. Carlos catheter is in place. No skin breakdown) - Derm Derm: Normal color, Warm and dry, No rash - Extremities Extremities: No deformity, No edema - Neuro Neuro: Other (Grossly intact) - Psych Psych: Normal mood, Normal affect Results - Vitals Vitals: Vital Signs - 24 hr 08/20/22 08/20/22 07:21 08:21 Temperature 36.6 C Heart Rate 76 76 Respiratory 16 20 Rate Blood Pressure 129/78 126/79 O2 Saturation 98 97 Oxygen O2 Source Room air - Labs Labs: Laboratory Tests 08/20/22 07:40 Urine Color YELLOW Urine Clarity CLEAR Urine pH 6.5 Ur Specific [place] 1.010 Urine Protein NEGATIVE Urine Glucose (UA) NEGATIVE Urine Ketones NEGATIVE Urine Occult Blood NEGATIVE Urine Nitrite NEGATIVE Urine Bilirubin NEGATIVE Urine Urobilinogen 4 H Ur Leukocyte Esterase NEGATIVE Ur Microscopic Review NOT INDICATED Urine Culture Comments NOT INDICATED Procedures - General procedure General procedure: The Carlos catheter was removed from the patient's gastrostomy site and a 22 Estonian gastrostomy tube was probably placed. The balloon was inflated with 10 cc of normal saline and the hub was advanced to the patient's skin to reduce any play of the tube. The tube advanced easily through the ostomy without discomfort or any resistance, either with advancement of the tube or inflation of the balloon with saline. Gastric contents were noted initially to come up through the tube after placement. PD Medical Decision Making - ED course Complexity details: considered differential, d/w patient ED course: The patient according to Rodney had had a [address], but we did not have 1 in stock, so a 22 Estonian was placed instead. This did easily advance head was affixed to the bone. Urinalysis was performed and negative. I felt patient was stable for discharge home. We have discussed home management of the symptoms as well as usual indications for follow-up and return. Departure - Departure Disposition: 01 Home, Self Care Clinical Impression: Encounter for feeding tube placement Condition: Stable Instructions: ED G Tube Replacement Comments: Your gastrostomy tube has been replaced today with the size that we have in stock that is closest to what you originally had. A urinalysis is also been performed to evaluate the recent need to urinate frequently. This is normal and shows no signs of infection. Please follow-up with your doctor as needed. Please continue to take your medications as usual, unless your primary doctor desires otherwise.
[2022-08-20 08:25] VITALS: BP 126/79
== END 2022-08-20 09:57 | disposition home or self-care (01) ==
LOC: EDUNIT# → ED 07:21
DX: Z46.59 Encounter for fitting and adjustment of other gastrointestinal appliance and device (principal)
CPT/HCPCS: 43762; 81001; 81003; 87086; 99283

== ENCOUNTER 2022-08-22 08:00 | Outpatient (CLI) | payer MEDICARE, OTHER ==
[2022-08-22 13:36] LABS: BASOPHILS # (AUTO) 0.1 10^3/uL (0.0-0.1); BASOPHILS % (AUTO) 0.6 %; EOSINOPHILS # (AUTO) 0.2 10^3/uL (0.0-0.7); EOSINOPHILS % (AUTO) 1.9 %; HGB - HEMOGLOBIN 13.9 g/dL (14.0-18.0); LYMPHOCYTES # (AUTO) 1.6 10^3/uL (1.5-3.5); LYMPHOCYTES % (AUTO) 20.3 %; MEAN CORPUSCULAR HGB CONC 34.8 g/dL (32.0-36.0); MEAN PLATELET VOLUME 9.4 fL (7.4-11.4); MONOCYTES # (AUTO) 0.6 10^3/uL (0.0-1.0); NEUTROPHILS # (AUTO) 5.3 10^3/uL (1.5-6.6); NEUTROPHILS % (AUTO) 68.7 %; PLT - PLATELET COUNT 262 10^3/uL (130-450); RED BLOOD COUNT 4.21 10^6/uL (4.70-6.10); RED CELL DISTRIBUTION WIDTH 13.2 % (12.0-15.0); WHITE BLOOD COUNT 7.8 x10^3/uL (4.8-10.8)
== END 2022-08-22 23:59 | disposition home or self-care (01) ==
LOC: LAB.R 08:00
PROVIDERS: ATTEND Registered Nurse
DX: M62.82 Rhabdomyolysis (principal); R13.12 Dysphagia, oropharyngeal phase
CPT/HCPCS: 85025

== ENCOUNTER 2022-08-23 18:04 | Outpatient (CLI) | payer MEDICARE, OTHER | END 2022-08-23 23:59 | disposition critical access hospital (66) | LOC: EMS 18:04 | DX: K94.29 Other complications of gastrostomy (principal) | CPT/HCPCS: A0425; A0429 ==

== ENCOUNTER 2022-08-23 18:17 | Emergency (ER) | payer MEDICARE, OTHER ==
--- NOTE | 2022-08-23 18:20 | ED Physician Documentation ---
History of Present Illness - Stated complaint Stated Complaint: DISLODGED FEEDING TUBE - History obtained from History obtained from: Patient, EMS - Additonal information Additional information: 81-year-old gentleman who has a PEG tube. It came out this afternoon and he was transferred from the SNF for replacement. He has no complaints. PD PAST MEDICAL HISTORY - Past Medical History Cardiovascular: Hypertension Respiratory: None Neuro: None Endocrine/Autoimmune: None GI: None : None HEENT: None Psych: None Musculoskeletal: None Derm: None - Past Surgical History Past Surgical History: Yes Ortho: Arthroscopic surgery HEENT: Cataracts - Present Medications Home Medications: Ambulatory Orders Medication Instructions Recorded Confirmed Aspirin [Aspirin EC] 81 mg PO DAILY 10/05/20 08/11/22 Lisinopril [Zestril] 10 mg PO DAILY 10/05/20 08/11/22 Carbidopa/Levodopa 2 tab PO TID 08/11/22 08/11/22 [Carbidopa-Levodopa 25-100 Tab] - Allergies Allergies/Adverse Reactions: Allergies Allergy/AdvReac Type Severity Reaction Status Date / Time No Known Drug Allergies Allergy Verified 08/11/22 17:50 - Social History Does the pt smoke?: No Smoking Status: Never smoker Does the pt drink ETOH?: Yes Does the pt have substance abuse?: No PD ED PE NORMAL - Abdomen Abdomen: Normal bowel sounds, Soft, Non tender, Other (PEG tube site left upper quadrant) - Psych Psych: Normal mood, Normal affect Results - Vitals Vitals: Vital Signs - 24 hr 08/23/22 18:15 Temperature 36.8 C Heart Rate 77 Respiratory 16 Rate Blood Pressure 139/84 H O2 Saturation 99 Oxygen O2 Source Room air PD Medical Decision Making - ED course ED course: PEG tube was replaced and an x-ray was ordered with Gastrografin to confirm placement. Departure - Departure Disposition: 01 Home, Self Care Clinical Impression: Encounter for feeding tube placement Condition: Good Record reviewed to determine appropriate education?: Yes Instructions: ED G Tube Replacement
[2022-08-23] MEDS ORDERED: DIATR MEGLU/DIATRIZOATE SODIUM 120 ML BOTTLE GT ONE (18:32)
--- NOTE | 2022-08-23 18:55 | XRAY Report ---
PROCEDURE: Abdomen 1 View X-Ray INDICATIONS: With Gastrografin in G tube, check placement TECHNIQUE: One view of the abdomen acquired. COMPARISON: 08/11/2022 CT FINDINGS: Surgical changes and devices: None. Bowel: Prominent fecal stool and gas. A gastrostomy tube is in place, contrast outlines the gastric o utlet. Soft tissues: Scattered abdominal hyperdensities, location indeterminate on single view radiography Bones: No suspicious bony lesions. IMPRESSION: Injected contrast outlines the gastric outlet. Reviewed by: Leroy Mancilla MD on 08/23/2022 6:54 PM PDT Approved by: Leroy Mancilla MD on 08/23/2022 6:54 PM PDT Station ID: [id number]
[2022-08-23 19:43] VITALS: BP 131/71
== END 2022-08-23 19:41 | disposition home or self-care (01) ==
LOC: EDBD → EDUNIT# → ED 18:17
DX: Z43.1 Encounter for attention to gastrostomy (principal)
CPT/HCPCS: 74018; 99282; 99283; Q9963

== ENCOUNTER 2022-08-27 11:52 | Outpatient (CLI) | payer MEDICARE, OTHER ==
--- NOTE | 2022-08-27 16:00 | XRAY Report ---
PROCEDURE: Elbow 2 View LT INDICATIONS: PAIN AND REDNESS TECHNIQUE: 2 views of the elbow were acquired. COMPARISON: None. FINDINGS: Bones: No acute fractures or dislocations. No suspicious bony lesions. Tiny posterior olecranon ent hesophyte. Soft tissues: No effusion. No suspicious soft tissue calcifications or masses. IMPRESSION: No acute osseous abnormality. If there is clinical concern or persistent symptoms, additional imaging such as repeat radiographs or advanced imaging (e.g. CT, MRI) may be helpful for further evaluation. Reviewed by: Edward Saldivar MD on 08/27/2022 3:58 PM PDT Approved by: Edward Saldivar MD on 08/27/2022 3:58 PM PDT Station ID: [id number]
--- NOTE | 2022-08-27 16:06 | XRAY Report ---
PROCEDURE: Chest 2 View X-Ray INDICATIONS: BREATHING ABNORMALITY TECHNIQUE: 2 views of the chest were acquired. COMPARISON: CT abdomen/pelvis 08/11/2022 FINDINGS: Surgical changes and devices: None. Lungs and pleura: No pleural effusions or pneumothorax. Calcifications are seen projecting over the lower lung zones, greater on the left, as seen on CT from 08/11/2022. Previously seen pleural effusion s appear to have resolved. Mediastinum: Mediastinal contours appear normal. Heart size is normal. Bones and chest wall: No suspicious bony lesions. Overlying soft tissues appear unremarkable. IMPRESSION: No acute cardiopulmonary process. Reviewed by: Edward Saldivar MD on 08/27/2022 4:05 PM PDT Approved by: Edward Saldivar MD on 08/27/2022 4:05 PM PDT Station ID: [id number]
== END 2022-08-27 11:53 | disposition home or self-care (01) ==
LOC: DI 11:52
PROVIDERS: ATTEND Registered Nurse
DX: R06.89 Other abnormalities of breathing (principal); L53.9 Erythematous condition, unspecified; M25.522 Pain in left elbow

== ENCOUNTER 2022-08-27 11:53 | Outpatient (CLI) | payer MEDICARE, OTHER | END 2022-08-27 11:54 | disposition home or self-care (01) | LOC: DI 11:53 | PROVIDERS: ATTEND Registered Nurse | DX: Z53.9 Procedure and treatment not carried out, unspecified reason (principal) ==

== ENCOUNTER 2022-09-04 08:00 | Outpatient (CLI) | payer MEDICARE, OTHER ==
[2022-09-04 21:44] LABS: BILIRUBIN,URINE NEGATIVE (NEGATIVE); GLUCOSE, URINE (UA) NEGATIVE (NEGATIVE); KETONES,URINE (UA) NEGATIVE (NEGATIVE); LEUKOCYTE ESTERASE, URINE LARGE (NEGATIVE); NITRITE,URINE POSITIVE (NEGATIVE); OCCULT BLOOD,URINE NEGATIVE (NEGATIVE); PH,URINE 6.5 PH (5.0-7.5); PROTEIN,URINE NEGATIVE (NEGATIVE); UROBILINOGEN,URINE 2 E.U./dL (NORMAL)
[2022-09-04 21:53] LABS: BACTERIA,URINE Many /HPF (None Seen); CLARITY,URINE HAZY (CLEAR); EPITHELIAL CELLS,UR FEW Transitional /HPF (<= Few); RBC,URINE 0-5 /HPF (0-5); SQUAMOUS EPITHELIAL CELL,UR NONE SEEN (<= Few); WBC,URINE >25 /HPF (0-3)
== END 2022-09-04 23:59 | disposition home or self-care (01) ==
LOC: LAB.R 08:00
PROVIDERS: ATTEND Registered Nurse
DX: N39.0 Urinary tract infection, site not specified (principal)
CPT/HCPCS: 81001; 87086; 87181

== ENCOUNTER 2022-09-07 13:52 | Outpatient (CLI) | payer MEDICARE, OTHER ==
[2022-09-07 14:19] LABS: CREATININE 0.8 mg/dL (0.6-1.2); POTASSIUM 3.9 mmol/L (3.5-5.0)
== END 2022-09-07 13:53 | disposition home or self-care (01) ==
LOC: LAB.R 13:52
PROVIDERS: ATTEND Registered Nurse
DX: I10 Essential (primary) hypertension (principal); M62.59 Muscle wasting and atrophy, not elsewhere classified, multiple sites; G20 Parkinson's disease
CPT/HCPCS: 80048

== ENCOUNTER 2022-09-17 04:03 | Outpatient (CLI) | payer MEDICARE, OTHER | END 2022-09-17 04:04 | disposition critical access hospital (66) | LOC: EMS 04:03 | DX: R07.89 Other chest pain (principal); R45.1 Restlessness and agitation; R53.83 Other fatigue | CPT/HCPCS: A0425; A0429 ==

== ENCOUNTER 2022-09-17 04:10 | Inpatient (IN) | payer MEDICARE, OTHER ==
--- NOTE | 2022-09-17 04:32 | ED Physician Documentation ---
PD HPI CHEST PAIN - Stated complaint Stated Complaint: CHEST PX - Chief complaint Chief Complaint: Cardiac - History obtained from History obtained from: Patient - Additional information Additional information: Patient is an 81-year-old male presenting for evaluation of chest pain. He is bedbound and G-tube dependent. Yesterday they started with bolus feeding through his G-tube versus continuous feeding which they have previously been doing. Per the son he tolerated the 2:00 bolus feed without any apparent issue. However when they started the 10:00 bolus feed he immediately started complaining of abdominal discomfort, belching, burping, burning sensation into his chest.The RN tells me that she gave him a dose of Mylanta through the G- tube. 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 Son stays with him at night because he tends to get owners.Currently patient states that he no longer has any chest pain or abdominal pain. Review of Systems Constitutional: denies: Fever Cardiac: reports: Chest pain / pressure Respiratory: denies: Dyspnea GI: denies: Vomiting PD PAST MEDICAL HISTORY - Past Medical History Cardiovascular: Hypertension Respiratory: None Neuro: None Endocrine/Autoimmune: None GI: None : None HEENT: None Psych: None Musculoskeletal: None Derm: None - Past Surgical History Past Surgical History: Yes Ortho: Arthroscopic surgery HEENT: Cataracts - Present Medications Home Medications: Ambulatory Orders Medication Instructions Recorded Confirmed Aspirin [Aspirin EC] 81 mg PEG DAILY 10/05/20 09/18/22 Lisinopril [Zestril] 5 mg PEG DAILY 10/05/20 09/18/22 Bisacodyl Supp [Dulcolax Supp] 10 mg KY DAILY PRN 09/17/22 09/17/22 Carbidopa/Levodopa 1 tab PEG TID 09/17/22 09/18/22 [Carbidopa-Levodopa 25-100 Tab] Famotidine [Pepcid AC] 20 mg PEG DAILY 09/17/22 09/18/22 Melatonin 3 mg PEG QPM 09/17/22 09/18/22 Ondansetron Odt [Zofran Odt] 4 mg PEG Q8H PRN 09/17/22 09/18/22 Senna [Senokot] 17.2 mg PEG QPM PRN 09/17/22 09/18/22 Tamsulosin HCl [Flomax] 0.4 mg PEG DAILY 09/17/22 09/18/22 guaiFENesin LIQUID [Robitussin 20 ml PEG Q4HR PRN 09/17/22 09/18/22 Liquid] polyethylene glycoL 3350 [Miralax] 17 gm PEG DAILY PRN 09/17/22 09/18/22 traZODone [Desyrel] 50 mg PEG QPM 09/17/22 09/18/22 Mineral Oil [Mineral Oil Enema] 1 unit KY PRN PRN 09/18/22 09/18/22 - Allergies Allergies/Adverse Reactions: Allergies Allergy/AdvReac Type Severity Reaction Status Date / Time No Known Drug Allergies Allergy Verified 09/17/22 04:22 - Social History Does the pt smoke?: No Smoking Status: Never smoker Does the pt drink ETOH?: Yes Does the pt have substance abuse?: No PD ED PE NORMAL - General General: Alert and oriented X 3, No acute distress, Other (Elderly, frail- appearing) - HEENT HEENT: Atraumatic, Pharynx benign - Neck Neck: Supple, no meningeal sign - Cardiac Cardiac: RRR, No murmur - Respiratory Respiratory: No respiratory distress, Clear bilaterally - Abdomen Abdomen: Normal bowel sounds, Soft, Non distended, Other (G-tube site is clean, with no erythema or drainage; Epigastric and mild right upper quadrant tenderness to palpation) - Derm Derm: Warm and dry - Extremities Extremities: No calf tenderness / cord - Neuro Neuro: Alert and oriented X 3, Normal speech, Other (Moves all extremities) Results - Vitals Vitals: Oxygen O2 Source Room air - EKG (time done) 0417 EKG releavant findings:: EKG personally interpreted by author of this note. Relevant findings are: Rate 75, normal sinus rhythm, right bundle branch block, no STEMI Rate: Rate (enter#) (75) Rhythm: NSR Intervals: RBBB Ischemia: No: ST elevation c/w ischemia - Labs Labs: Microbiology 09/17/22 05:48 Urine Culture - Final Urine,Clean Catch LESS THAN 10,000 COLONIES/ML polymicrobial growth including potential pathogens. This is suggestive of skin or other contamination. Laboratory Tests 09/17/22 09/17/22 09/17/22 05:14 05:14 05:14 WBC 15.6 H RBC 4.92 Hgb 16.2 Hct 47.5 MCV 96.5 H MCH 32.9 H MCHC 34.1 RDW 13.2 Plt Count 208 MPV 9.2 Neut # (Auto) 13.3 H Lymph # (Auto) 0.9 L Rogers # (Auto) 1.2 H Eos # (Auto) 0.0 Baso # (Auto) 0.1 Absolute Nucleated RBC 0.00 Nucleated RBC % 0.0 Sodium 137 Potassium 4.5 Chloride 100 L Carbon Dioxide 27 Anion Gap 10.0 BUN 25 H Creatinine 0.6 Estimated GFR (MDRD) 129 Glucose 189 H Calcium 9.1 Total Bilirubin 3.2 H AST 246 H ALT 237 H Alkaline Phosphatase 176 H Troponin I High Sens 2.6 Total Protein 7.1 Albumin 3.6 Globulin 3.5 Albumin/Globulin Ratio 1.0 Lipase 312 H Urine Color Urine Clarity Urine pH Ur Specific Pennock Urine Protein Urine Glucose (UA) Urine Ketones Urine Occult Blood Urine Nitrite Urine Bilirubin Urine Urobilinogen Ur Leukocyte Esterase Urine RBC Urine WBC Ur Squamous Epith Cells Urine Bacteria Ur Microscopic Review Urine Culture Comments 09/17/22 09/17/22 05:48 10:05 WBC RBC Hgb Hct MCV MCH MCHC RDW Plt Count MPV Neut # (Auto) Lymph # (Auto) Rogers # (Auto) Eos # (Auto) Baso # (Auto) Absolute Nucleated RBC Nucleated RBC % Sodium 138 Potassium 4.8 Chloride 101 Carbon Dioxide 29 Anion Gap 8.0 BUN 26 H Creatinine 0.7 Estimated GFR (MDRD) 108 Glucose 222 H Calcium 8.9 Total Bilirubin 3.6 H AST 236 H ALT 102 H Alkaline Phosphatase 182 H Troponin I High Sens Total Protein 6.5 L Albumin 3.1 L Globulin 3.4 Albumin/Globulin Ratio 0.9 L Lipase 1164 H Urine Color DARK YELLOW Urine Clarity CLEAR Urine pH 5.5 Ur Specific Pennock 1.010 Urine Protein NEGATIVE Urine Glucose (UA) NEGATIVE Urine Ketones TRACE Urine Occult Blood NEGATIVE Urine Nitrite NEGATIVE Urine Bilirubin SMALL H Urine Urobilinogen >=8.0 H Ur Leukocyte Esterase SMALL H Urine RBC None Seen Urine WBC 4-5 Ur Squamous Epith Cells RARE Squamous Urine Bacteria Rare Ur Microscopic Review INDICATED Urine Culture Comments INDICATED PD Medical Decision Making - ED course Complexity details: reviewed results, re-evaluated patient, d/w patient, d/w family (Patient's sons) ED course: 441 - RN checked his tube. He had 80 cc of residual feeds. She was able to give This back to him and flushed without any issue. Patient is an 81-year-old male coming from [facility] with a history of Parkinson's and dementia for evaluation of chest pain as well as abdominal pain. Patient's tube feeds were recently changed from continuous tube feeds to bolus tube feeds yesterday. During the second feeding at 10 PM he developed immediate abdominal pain that radiated to the chest.EKG was obtained which does not show signs of acute ischemia. Labs including CBC, chemistries and troponin were reviewed. Mild leukocytosis of 15,000. High-sensitivity troponin is negative. Patient has abnormalities in regards to his chemistries with elevated LFTs, bilirubin and lipase. He does have upper abdominal tenderness.Concern for biliary obstruction CT was ordered. CT with pancreatitis, no stones. Reviewed findings with sons at bedside. Given elevated bilirubin an MRCP was ordered and pending at time of shift change. pt signed out to oncoming provider. If there is a ductal obstruction, pt would need transfer for GI/ERCP. If not, admission to [facility]. Departure - Departure Disposition: 66 [facility] DC/Xfer Clinical Impression: Transaminitis, Abdominal pain, Chest pain, Pancreatitis Condition: Stable Discharge Date/Time: 09/17/22 20:33
[2022-09-17 05:19] LABS: BASOPHILS # (AUTO) 0.1 10^3/uL (0.0-0.1); BASOPHILS % (AUTO) 0.3 %; EOSINOPHILS % (AUTO) 0.2 %; HCT - HEMATOCRIT 47.5 % (42.0-52.0); HGB - HEMOGLOBIN 16.2 g/dL (14.0-18.0); LYMPHOCYTES # (AUTO) 0.9 10^3/uL (1.5-3.5); LYMPHOCYTES % (AUTO) 5.7 %; MEAN CORPUSCULAR HEMOGLOBIN 32.9 pg (27.0-31.0); MEAN CORPUSCULAR HGB CONC 34.1 g/dL (32.0-36.0); MEAN CORPUSCULAR VOLUME 96.5 fL (80.0-94.0); MEAN PLATELET VOLUME 9.2 fL (7.4-11.4); MONOCYTES # (AUTO) 1.2 10^3/uL (0.0-1.0); MONOCYTES % (AUTO) 7.8 %; NEUTROPHILS # (AUTO) 13.3 10^3/uL (1.5-6.6); NEUTROPHILS % (AUTO) 85.6 %; PLT - PLATELET COUNT 208 10^3/uL (130-450); RED BLOOD COUNT 4.92 10^6/uL (4.70-6.10); RED CELL DISTRIBUTION WIDTH 13.2 % (12.0-15.0); WHITE BLOOD COUNT 15.6 x10^3/uL (4.8-10.8)
[2022-09-17 06:00] LABS: GLUCOSE, URINE (UA) NEGATIVE (NEGATIVE); KETONES,URINE (UA) TRACE mg/dL (NEGATIVE); LEUKOCYTE ESTERASE, URINE SMALL (NEGATIVE); NITRITE,URINE NEGATIVE (NEGATIVE); OCCULT BLOOD,URINE NEGATIVE (NEGATIVE); PH,URINE 5.5 PH (5.0-7.5); PROTEIN,URINE NEGATIVE (NEGATIVE); UROBILINOGEN,URINE >=8.0 E.U./dL (NORMAL)
[2022-09-17 06:04] LABS: ALBUMIN 3.6 g/dL (3.2-5.5); BILIRUBIN,TOTAL 3.2 mg/dL (0.2-1.0); CALCIUM 9.1 mg/dL (8.5-10.3); CREATININE 0.6 mg/dL (0.6-1.2); POTASSIUM 4.5 mmol/L (3.5-5.0); TOTAL PROTEIN 7.1 g/dL (6.7-8.2)
[2022-09-17 06:07] LABS: BILIRUBIN,URINE SMALL (NEGATIVE); CLARITY,URINE CLEAR (CLEAR); ICTOTEST,URINE POSITIVE
[2022-09-17 06:08] LABS: BACTERIA,URINE Rare /HPF (None Seen); RBC,URINE None Seen /HPF (0-5); SQUAMOUS EPITHELIAL CELL,UR RARE Squamous (<= Few)
[2022-09-17] MEDS ORDERED: SODIUM CHLORIDE 0.9% 1,000 ML IV STA ×2 (06:11→12:04)
[2022-09-17] MEDS ORDERED: iohexoL-300 100 ML VIAL ONE (06:17)
[2022-09-17] MEDS ORDERED: iohexoL-300 100 ML VIAL IVP ONE (07:03)
--- NOTE | 2022-09-17 07:50 | XRAY Report ---
PROCEDURE: Chest 1 View X-Ray INDICATIONS: CP TECHNIQUE: One view of the chest was acquired. COMPARISON: 08/27/2022. FINDINGS: Surgical changes and devices: None. Lungs and pleura: No pleural effusions or pneumothorax. Lungs are clear. Mediastinum: Mediastinal contours appear normal. Heart size is normal. Bones and chest wall: No suspicious bony lesions. Overlying soft tissues appear unremarkable. IMPRESSION: No acute cardiopulmonary process. Findings are concordant with preliminary interpretation provided by [facility]. Reviewed by: Yuan Anguiano MD on 09/17/2022 7:49 AM PDT Approved by: Yuan Anguiano MD on 09/17/2022 7:49 AM PDT Station ID: [id number]
--- NOTE | 2022-09-17 07:56 | CT Report ---
PROCEDURE: ABDOMEN/PELVIS W INDICATIONS: abnormal bili/LFTs/abdominal pain CONTRAST: 100 ML OMNI 300 TECHNIQUE: After the administration of IV contrast, 5 mm thick sections acquired from the diaphragms to the symp hysis. 5 mm thick coronal and sagittal reformats were acquired. For radiation dose reduction, the f ollowing was used: automated exposure control, adjustment of mA and/or kV according to patient size. COMPARISON: 08/11/2022 FINDINGS: Image quality: Excellent. Lung bases and heart: Dependent atelectasis in posterior aspect of bilateral lung bases are seen. 9 m m solid nodule in right lower lobe is again seen and unchanged from prior study. Heart size is enlarg ed, no pericardial effusion. Moderate atherosclerotic calcifications and coronary vessels are seen. Liver: Again noted are numerous hepatic cysts not significantly changed in size or appearance compare d to prior study. Gallbladder and biliary tree: Gallbladder is distended. No gallbladder wall thickening or calcified g allstones are seen. Spleen: No splenomegaly. Pancreas: Extensive peripancreatic inflammatory changes and small to moderate amount of peripancreati c fluid is noted. No loculated fluid collection is seen. No significant pancreatic ductal dilatation. Adrenals: No adrenal nodule. Kidneys and ureters: No hydronephrosis. Bilateral nonobstructing renal calculi are unchanged. Bilater al renal cysts are again seen unchanged from prior study. No solid mass. Bowel and peritoneum: No bowel distension. No pathologic free fluid. Fecal stasis in the colon is see n with significant fecal distention of sigmoid colon and rectum . PEG tube tip is in the stomach lume n unchanged from prior study. Appendix is visualized and is within normal limits. Lymph nodes: No central or retroperitoneal adenopathy. Vessels: No infrarenal aortic aneurysm. Moderate atherosclerotic calcifications in the abdominal aort a is seen. PELVIS Reproductive organs: Unremarkable. Bladder: Mild diffuse bladder wall thickening is noted, no discrete bladder wall mass. Pelvic lymph nodes: No pelvic adenopathy by size criteria. Bones: No aggressive osseous abnormality. Other: No significant ventral hernia. Bilateral inguinal hernia is seen containing fat only. IMPRESSION: 1. Finding is consistent with acute pancreatitis. No discrete drainable peripancreatic fluid collecti on. No significant biliary ductal dilatation. 2. Distended gallbladder, no calcified gallstones or gallbladder wall thickening. 3. Significant constipation/obstipation and sigmoid colon and rectum. No abnormal bowel wall thickeni ng. No free fluid or free air. Normal appendix. PEG tube is in the stomach lumen. 4. Stable right lower lobe [address] chest follow-up in 6-12 months is recommended. Findings are concordant with preliminary interpretation provided by [facility]. Reviewed by: Yuan Anguiano MD on 09/17/2022 7:55 AM PDT Approved by: Yuan Anguiano MD on 09/17/2022 7:55 AM PDT Station ID: [id number]
[2022-09-17] MEDS: CARBIDOPA/LEVODOPA 25 MG/100 MG TABLET PO SCH ×4 (08:41→21:11)
[2022-09-17] MEDS ORDERED: traZODone 50 MG TABLET PO SCH (10:00)
[2022-09-17 10:43] LABS: ALBUMIN 3.1 g/dL (3.2-5.5); ALBUMIN/GLOBULIN RATIO 0.9 (1.0-2.2); BILIRUBIN,TOTAL 3.6 mg/dL (0.2-1.0); CALCIUM 8.9 mg/dL (8.5-10.3); CREATININE 0.7 mg/dL (0.6-1.2); POTASSIUM 4.8 mmol/L (3.5-5.0); TOTAL PROTEIN 6.5 g/dL (6.7-8.2)
[2022-09-17] MEDS ORDERED: GADOBUTROL 10 MMOL/10 ML VIAL ONE (11:51)
[2022-09-17] MEDS ORDERED: LORazepam 2 MG/ML VIAL IVP STA (12:03)
[2022-09-17] MEDS ORDERED: HYDROmorphone 0.5 MG/0.5 ML SYRINGE IVP STA (12:06)
[2022-09-17] MEDS ORDERED: KETOROLAC 15 MG/ML VIAL IVP STA (12:06)
--- NOTE | 2022-09-17 14:10 | MRI Report ---
PROCEDURE: MRCP W/WO INDICATIONS: Pancreatitis, elevated bilirubin and liver enzymes CONTRAST: gadavist 7.7 TECHNIQUE: Coronal ultra fast SE through the abdomen, axial 2-D spoiled GE in- and [id number], and breath-hold T2 FSE with fat saturation through the biliary system and pancreas. Oblique coronal and axial thin- slice ultra fast SE, radial thick-slab ultra fast SE centered on the extrahepatic bile ducts. COMPARISON: CT 09/17/2022 FINDINGS: Image quality: Severely suboptimal due to motion artifact.. Gallbladder: Distended. No stones visualized. Sludge present. Mild focal wall thickening. Biliary tree: No intrahepatic or extrahepatic dilation. No filling defects within the common bile yolanda t. Pancreas: No pancreatic ductal dilation. There is marked T2 hyperintense edema surrounding the entire pancreas. No pancreatic ductal dilation. Lung bases and heart: Unremarkable. Liver: Scattered T2 hyperintense cysts without significant internal complexity. Spleen: No splenomegaly. Adrenals: No adrenal nodule. Kidneys and ureters: No hydronephrosis. No renal cystic lesion which requires follow up. No solid mas s. Bowel and peritoneum: No bowel distension. No pathologic free fluid. Lymph nodes: No central or retroperitoneal adenopathy. Vessels: No infrarenal aortic aneurysm. Bones: No aggressive osseous abnormality. Other: No significant ventral hernia. IMPRESSION: Suboptimal evaluation due to motion artifact. Acute pancreatitis. Gallbladder distention and focal wall thickening. Findings could be due to acalculous cholecystitis, versus recently passed stone with persistent distention, inflammation. No intrahepatic or extrahepatic biliary dilation. No definite evidence of choledocholithiasis. Reviewed by: Anant Taveras on 09/17/2022 2:08 PM PDT Approved by: Anant Taveras on 09/17/2022 2:08 PM PDT Station ID: [id number]
--- NOTE | 2022-09-17 15:54 | ED Physician Documentation ---
ED Addendum - Addendum Addendum: 09/17/22 15:54 The patient was a little bit restless through the morning and up to his MRI. He was given a dose of his trazodone which she does take at night for sleep. This helps some. He seemed perhaps uncomfortable with abdominal pain so given hydromorphone and Toradol. This did help a little bit more. He was able to get the MRI done adequately. There was some motion artifact. The MRI reading showed there to be no ductal dilatation or obvious ductal mass. He did have pancreatitis findings. Repeat lipase showed an increase to now approximately 2000. He is having some restlessness and tenderness in the upper abdomen. Consideration was some blockage of the common bile duct which is now passed causing both pancreatic and liver enzyme elevations. Other consideration would be effect of the G-tube feedings. Perhaps the lipid content. New medications included the trazodone. I can look that up to see if it is associated with pancreatic inflammation. Referencing [employer] drug reference, the medication is not associated with pancreatitis. He can have some liver enzyme elevation. At this point without any ductal blockage, it would appear the patient is able to be cared for locally. I talked with the family and given his discomfort at the time, they would prefer him hospitalized and treated. He is otherwise largely comfort measures. We can provide IV fluids and minimal intake and pain medicine as needed for comfort. I will continue attempting contact with the hospitalist. Disposition: The patient is placed in observation for ongoing care This diagnoses: 1. Upper abdominal pain 2. Acute pancreatitis 3. Elevated liver enzymes 4. New diagnosis Parkinson's 5. Mild dementia and anxiety
[2022-09-17] MEDS ORDERED: HYDROmorphone 1 MG/ML CARPUJECT IVP STA (19:35)
[2022-09-17] MEDS ORDERED: GADOBUTROL 10 MMOL/10 ML VIAL IVP ONE (19:42)
--- NOTE | 2022-09-17 19:43 | ED Physician Documentation ---
ED Addendum - Addendum Addendum: 09/17/22 19:43 Presented to telehealth physician, Dr. Day for admission at this time.
[2022-09-17] MEDS ORDERED: ONDANSETRON 4 MG/2 ML VIAL IVP PRN (19:44)
--- NOTE | 2022-09-17 20:13 | HISTORY & PHYSICAL EXAMINATION ---
History and Physical - History and Physical Chief complaint Chest pain and abdominal pain History of present illness This is 81-year-old male who presented to emergency room from nursing facility with chest pain abdominal pain. Patient has G-tube and he was recently started on bolus feeding from the continuous feeding. Patient started complaining of abdominal discomfort belching burping and burning sensation in his chest after bolus feeding was started. He was restless and therefore EMS was called. Patient has dementia and is not able to provide much history. Patient's son is present at bedside who provided most of the history. As per the son, patient is DNR. Patient never had pancreatitis in the past. Patient is not able to provide any history. Patient was given IV Dilaudid and IV fluid bolus in the emergency room. On arrival patient's lipase was 1100 with AST 03/19/1935 and ALT 112 with total bilirubin of 3.6. Patient also underwent MRCP which did not show any sign of choledocholithiasis. Past medical history Hypertension Suspected Parkinson's dementia Benign prostatic hypertrophy Dysphagia Past surgical history Arthroscopic surgery and cataract Allergies reviewed Home medications reviewed Review of systems Unable to do review of system as patient has altered mental status/dementia Physical examination Vital signs reviewed Head is atraumatic normocephalic Pupils are round and reactive to light and accommodation Neck no JVD CVS regular rate rhythm Respiration air entry equal bilaterally Abdomen right upper quadrant tenderness without rebound or guarding Extremities no clubbing cyanosis or edema Psych flat affect [employer] moving all 4 extremities Skin no ulcers or rashes Musculoskeletal no calf tenderness Chest x-ray within normal limits CT abdomen pelvis showed finding consistent with acute pancreatitis with distended gallbladder Assessment 1. Acute pancreatitis. Biliary etiology is ruled out 2. Dysphagiapatient is on PEG tube feeding. Recently patient was started on bolus feeding from PEG tube feeding 3. Hypertension 4. Benign prostatic hypertrophy 5. Dementia Plan Admit patient on telemetry Keep him n.p.o. IV hydration with normal saline at 1 5/h IV Protonix As needed Zofran and morphine gradually start clear liquid fluid through the PEG tube tomorrow Check daily input and output May restart home medications soon CODE STATUS DO NOT RESUSCITATE/DO NOT INTUBATE Total time taken for this was 70 minutes. This was telemedicine evaluation using bedside telemedicine audiovisual cart with the help of bedside nursing staff Miguelito. Verbal consent for telemedicine evaluation was taken from the family. I am located in [facility] and patient is located in [facility] on [place], [place]
[2022-09-17] MEDS: SODIUM CHLORIDE FLUSH 0.9% 10 ML SYRINGE IVP PRN (20:36)
[2022-09-17] MEDS: SODIUM CHLORIDE 0.9% 1,000 ML IV SCH (20:36)
[2022-09-18] MEDS: MORPHINE 2 MG/ML CARPUJECT IVP PRN ×7 (01:12→21:06)
[2022-09-18] MEDS: SODIUM CHLORIDE FLUSH 0.9% 10 ML SYRINGE IVP SCH ×4 (01:12→08:23)
[2022-09-18] MEDS: SODIUM CHLORIDE 0.9% 1,000 ML IV SCH ×4 (02:54→23:03)
[2022-09-18 05:40] LABS: HCT - HEMATOCRIT 42.5 % (42.0-52.0); HGB - HEMOGLOBIN 14.8 g/dL (14.0-18.0); MEAN CORPUSCULAR HEMOGLOBIN 33.7 pg (27.0-31.0); MEAN CORPUSCULAR HGB CONC 34.8 g/dL (32.0-36.0); MEAN CORPUSCULAR VOLUME 96.8 fL (80.0-94.0); MEAN PLATELET VOLUME 9.2 fL (7.4-11.4); RED BLOOD COUNT 4.39 10^6/uL (4.70-6.10); RED CELL DISTRIBUTION WIDTH 13.5 % (12.0-15.0); WHITE BLOOD COUNT 14.7 x10^3/uL (4.8-10.8)
[2022-09-18 05:55] LABS: ALBUMIN 2.9 g/dL (3.2-5.5); ALBUMIN/GLOBULIN RATIO 0.9 (1.0-2.2); BILIRUBIN,TOTAL 3.2 mg/dL (0.2-1.0); CALCIUM 8.2 mg/dL (8.5-10.3); CREATININE 0.5 mg/dL (0.6-1.2)
[2022-09-18] MEDS ORDERED: CARBIDOPA/LEVODOPA 25 MG/100 MG TABLET PEG SCH (07:35)
--- NOTE | 2022-09-18 07:55 | PROVIDER PROGRESS NOTE ---
Subjective - Prog Note Date Prog Note Date: 09/18/22 Prog Note Time: 18:18 - Subjective Subjective: I have seen the patient twice today. Once was this morning with his son and [id number]. And then I saw him again a second time when his second son ca me to the hospital to visit dad. Please see advance care planning conversation under separate dictation The patient continues to be constantly moving. Mumbling. Eyes closed. Delirious. He had an abrupt change in status on July 31. His last known normal was July 30. He has been seen by neurology and they are trying to figure out what is wrong with him. Was at his brainstem stroke, upper motor neuron disease, new sudden Parkinson's? In any case, he went to a [facility]. He has not done well. Is continue to deteriorate from mobility perspective and strength perspective. And now the sudden onset of abdominal pain. Patient continues to grimace and wince when I examine his abdomen. He is not really participating in conversation. To delirious. Current Medications - Current Medications Current Medications: Active Medications Carbidopa/Levodopa (Carbidopa/Levodopa 25 Mg/100 Mg Tablet) 1 tab PEG QID [facility] Enoxaparin Sodium (Enoxaparin 40 Mg/0.4 Ml Syringe) 40 mg SUBQ DAILY [facility] Sodium Chloride (Normal Saline 0.9%) 1,000 mls @ 150 mls/hr IV .Q6H40M [facility] Last Admin: 09/18/22 02:54 Dose: 150 mls/hr Morphine Sulfate (Morphine 2 Mg/Ml Carpuject) 2 mg IVP Q2HR PRN PRN Reason: Pain 8 to 10 Last Admin: 09/18/22 05:32 Dose: 2 mg Ondansetron HCl (Ondansetron 4 Mg/2 Ml Vial) 4 mg IVP Q6HR PRN PRN Reason: Nausea / Vomiting Pantoprazole Sodium (Pantoprazole 40 Mg Vial) 40 mg IVP DAILY [facility] Sodium Chloride (Sodium Chloride Flush 0.9% 10 Ml Syringe) 10 ml IVP PRN PRN PRN Reason: NEEDED PER PROVIDER ORDERS Last Admin: 09/17/22 20:36 Dose: 10 ml Sodium Chloride (Sodium Chloride Flush 0.9% 10 Ml Syringe) 10 ml IVP 0100,0900,1700 [facility] Last Admin: 09/18/22 05:34 Dose: 10 ml Aspirin [Aspirin EC] 81 mg DAILY 10/05/20 Lisinopril [Zestril] 10 mg PO DAILY 10/05/20 Bisacodyl Supp [Dulcolax Supp] 10 mg [place] DAILY PRN 09/17/22 Carbidopa/Levodopa [Carbidopa-Levodopa 25-100 Tab] 1 tab TID 09/17/22 Famotidine [Pepcid AC] 20 mg DAILY 09/17/22 Melatonin 3 mg QPM 09/17/22 Mineral Oil 1,000 ml [place] 09/17/22 Ondansetron Odt [Zofran Odt] 4 mg DAILY 09/17/22 Senna [Senokot] 2 tab QPM PRN 09/17/22 Tamsulosin HCl [Flomax] 1 cap DAILY 09/17/22 guaiFENesin LIQUID [Robitussin Liquid] 20 ml Q4HR PRN 09/17/22 polyethylene glycoL 3350 [Miralax] 17 gm PRN 09/17/22 traZODone [Desyrel] 50 mg QPM 09/17/22 Objective - Vital Signs/Intake & Output Reviewed Vital Signs: Yes Vital Signs: Vital Signs x48h Temp Pulse Resp BP Pulse Ox 09/18/22 07:27 36.4 C L 78 20 138/63 H 98 09/18/22 01:21 36.4 C L 101 H 18 137/68 H 97 Intake & Output: Intake & Output 09/15/22 09/16/22 09/17/22 09/18/22 23:59 23:59 23:59 23:59 Intake Total 2245 720 Output Total 100 Balance 2145 720 - Objective General Appearance: positive: Moderate distress (Constant mumbling, constant movement, recognizes his sons but no meaningful conversation), Lethargic, Other (Tall, slightly cachectic elderly gentleman with a handlebar mustache) Eyes Bilateral: positive: PERRL, EOMI ENT: positive: Dry mucous membranes Neck: positive: No JVD. negative: Stiff neck Respiratory: positive: No respiratory distress, Rhonchi. negative: Wheezes, Rales Cardiovascular: positive: Regular rate & rhythm Abdomen: positive: Tenderness (As manifested by grimacing and withdrawal of his body when I palpate his epigastrium and left upper quadrant.), Other (Hypoactive bowel sounds, no distention). negative: Guarding, Rebound Skin: positive: Warm, Diaphoresis (Slight sheen of sweat on his face, hands) Extremities: positive: Full ROM Neurologic/Psychiatric: positive: CN's nml (2-12), Motor nml, Disoriented to person, Disoriented to place, Disoriented to time - Lab Results Fish Bones: 09/18/22 05:20 09/18/22 05:20 Other Labs: Lab Results x24hrs 09/18/22 09/18/22 09/17/22 Range/Units 05:20 05:20 10:05 WBC 14.7 H (4.8-10.8) x10^3/uL RBC 4.39 L (4.70-6.10) 10^6/uL Hgb 14.8 (14.0-18.0) g/dL Hct 42.5 (42.0-52.0) % MCV 96.8 H (80.0-94.0) fL MCH 33.7 H (27.0-31.0) pg MCHC 34.8 (32.0-36.0) g/dL RDW 13.5 (12.0-15.0) % Plt Count 204 (130-450) 10^3/uL MPV 9.2 (7.4-11.4) fL Sodium 139 138 (135-145) mmol/L Potassium 4.0 4.8 (3.5-5.0) mmol/L Chloride 107 101 (101-111) mmol/L Carbon Dioxide 24 29 (21-32) mmol/L Anion Gap 8.0 8.0 (6-13) BUN 29 H 26 H (6-20) mg/dL Creatinine 0.5 L 0.7 (0.6-1.2) mg/dL Estimated GFR (MDRD) 160 108 (>89) Glucose 90 222 H (70-100) mg/dL Calcium 8.2 L 8.9 (8.5-10.3) mg/dL Total Bilirubin 3.2 H 3.6 H (0.2-1.0) mg/dL AST 151 H 236 H (10-42) IU/L ALT 44 102 H (10-60) IU/L Alkaline Phosphatase 222 H 182 H (42-121) IU/L Total Protein 6.0 L 6.5 L (6.7-8.2) g/dL Albumin 2.9 L 3.1 L (3.2-5.5) g/dL Globulin 3.1 3.4 (2.1-4.2) g/dL Albumin/Globulin Ratio 0.9 L 0.9 L (1.0-2.2) Lipase 1164 H (22-51) U/L ABX Reporting Has patient been on IV antibiotics over the past 48 hours?: No Assessment/Plan - Problem List (1) Pancreatitis Impression: After reviewing the record and looking at the MRCP. He has sludge. He has no history of alcoholic pancreatitis. No history of alcohol abuse. He does not have common bile duct dilatation. He is not on any medications that would do this. But in reviewing the sludge, that is the only conclusion I can come to that it is biliary in nature. However, his acute pancreatitis needs to be put in context of a recent ne urological event. Unfortunately the family is not clear what the event is because the neurologist is not clear what the event is. The patient quickly deteriorated and was placed in a [facility]. He has been seen by neurology and they are going to continue a work-up. But his father never wanted any of this done. So please see advance care planning conversation under separate conversation Plan: Continue IV fluids, morphine 2 mg IV push every 2 hours as needed pain, Zofran 4 mg IV push every 6 hours as needed nausea, Protonix 40 mg IV push. I have him n.p.o. I do not want to feed him quite yet. I have drawn a diagram on the white board describing liver and pancreatic anatomy and where the problem may be. Patient is not a candidate for an ERCP. Next step would possibly be gallbladder surgery. The family is not sure they want that. Qualifiers: Chronicity: acute Pancreatitis type: biliary (2) Parkinsons Impression: This diagnosis is in question as well. He is on carbidopa levodopa. Recently reduced. Family thought it was 4 times a day but review his medication list from the [facility]p shows it to be 3 times a day. So I will reduce the dosing frequency, and change it from p.o. to PEG tube. (3) Delirium Impression: Is understandablyHe is an elderly gentleman that had a recent undiagnosed neurological event, is living in a [facility], and has had a sharp change in mental status since July 31. Distressed at seeing their dad reach out, mumble, and not be completely aware. I reassured him as much as I can that what I am seeing is an elderly person with delirium in the hospital. I am hoping that will kat once he is in his usual setting. In the meantime nursing is frequently evaluating him to make sure he does not pull out an NG, or an IV. I am avoiding the use of benzodiazepines. (4) Transaminitis Impression: Laboratory Tests 09/17/22 09/17/22 09/18/22 05:14 10:05 05:20 Total Bilirubin 3.2 H 3.6 H 3.2 H AST 246 H 236 H 151 H ALT 237 H 102 H 44 Alkaline Phosphatase 176 H 182 H 222 H Lipase 312 H 1164 H In reviewing his labs, bili appears to be staying the same. AST is improved, and ALT has not gone to normal. There is no history of alcohol abuse. No history of liver failure with use of Tylenol or other drugs. Currently his transaminitis is attributed to the same reason he is pancreatitis. Some injury to the common bile duct this most likely sludge or a passed stone that were not aware of. Plan:, Supportive measures to control pain, hydration with IV fluids, n.p.o. status.
[2022-09-18] MEDS: ENOXAPARIN 40 MG/0.4 ML SYRINGE SUBQ SCH (08:23)
[2022-09-18] MEDS: PANTOPRAZOLE 40 MG VIAL IVP SCH (08:23)
--- NOTE | 2022-09-18 11:21 | PHARMACY PROGRESS NOTE ---
- Best Possible Medication History Admit Date and Time: 09/17/221943 Processed by: Pharmacy Medication History completed: Yes Secondary Source(s): Facility MAR as ONLY source As the person ultimately responsible for medication therapy, providers are able to order a medication from an existing home medication list in [facility] via the "Reconcile Routine" prior to Confirmation of that medication by senior safety support manager. Such practice is discouraged except when the physician, in their clinical judgment, deems that a medical need exists for a medication without regard to previous use.
[2022-09-18] MEDS: CARBIDOPA/LEVODOPA 25 MG/100 MG TABLET PEG SCH ×2 (16:49→21:06)
--- NOTE | 2022-09-18 18:31 | ADVANCE CARE PLANNING NOTE ---
Advance Care Planning - Planning Encounter Date: 09/18/22 Time: 02:30 Purpose: Establish care goals in a patient who has had sudden deterioration since July 31 Parties in Attendance: Both of his sons. Decisional Capacity of the Patient: Unable to participate because of sudden memory loss, and current delirium - Diagnosis for Encounter (3) Delirium Summary: Sudden onset of confusion, loss of mobility and functionality on July 31. Current differential diagnosis per neurology is brainstem stroke, versus upper motor neuron disease, versus some type of movement disorder. Not quite Parkinson's but close to it. He has been left with decreased functionality to the point that he is now in a jail. With his current hospitalization he is even more confused, mumbling, pulling at lines, and sons report that he has pulled out his NG at the jail several times. They cannot use bed rails there and they are constantly fearful he is going to fall. - Encounter Subjective/Patient's Story: He was living independently at home until July 30. That was the last time I saw him as "normal". He was getting slightly forgetful but still able to take care of himself. Was not driving but again able to dress himself, feed himself, and take care of light housekeeping chores. With this sudden event that they no ticed on July 31 when he was found down, he is never recovered. He was "stiff as a board" when EMS rolled him over to pick him up. He was taken to [facility] and diagnosed with acute renal failure, altered mental status, rhabdomyolysis. From there he was sent to [facility] for rehab but he is never gone back to being the personality he was before. Both of them are distraught. They are tearful. They do not know what the diagnosis is. But I explained that the differential diagnosis they have described to me almost does not matter. None of these are treatable or reversible. You might be able to stabilize the disease process but not cure the patient. Dad has been telling them for over a decade that he does not want to live if he becomes this disabled. He has repeatedly told them this. they are struggling with the idea of letting him go, according to his wishes, vs trying to figure out what is wrong with him and see if they could stabilize him temporarily to have a few more weeks with him. May be a few more months. They know that they do not want him to return to the [facility] facility. Is been less than a satisfactory experience with them. They also know that if he is going to , they would rather he at home. Objective/Medical Story: This is 81-year-old male who presented to emergency room from nursing facility w ith chest pain abdominal pain. Patient has G-tube and he was recently started on bolus feeding from the continuous feeding. Patient started complaining of abdominal discomfort belching burping and burning sensation in his chest after bolus feeding was started. He was restless and therefore EMS was called. Patient has dementia and is not able to provide much history. Patient's son is present at bedside who provided most of the history. As per the son, patient is DNR. Patient never had pancreatitis in the past. Patient is not able to provide any history. Patient was given IV Dilaudid and IV fluid bolus in the emergency room. On arrival patient's lipase was 1100 with AST 03/19/1935 and ALT 112 with total bilirubin of 3.6. Patient also underwent MRCP which did not show any sign of choledocholithiasis. Past medical history Hypertension Suspected Parkinson's dementia Benign prostatic hypertrophy Dysphagia Past surgical history Arthroscopic surgery and cataract Goals of Care: To make him as comfortable as possible. To possibly get him through this acute episode of pancreatitis with out support of meds. They want to see if then can work with rehab and home health; they would like to return to a status where he is at least ambulatory, and somewhat aware of where he is and what he is doing. Plan: I have expressed my doubt that he will recover enough to achieve those goals satisfactorily. But they are his advocate, and I will follow through with continued: IV fluids for hydration IV morphine for pain IV Zofran or Compazine for nausea Vigilant monitoring for complications of pancreatitis including pseudo abscess , abscess, or necrotizing pancreatitis and I explained that to them DO NOT RESUSCITATE status with out transfer to ICU for intubation. But they would like pressors if necessary They would like to give this a few more days. We discussed the natural progression of uncomplicated pancreatitis. If after a few days he is not showing any improvement at all, they would like to re discuss the advance care goals Code Status: Do Not Attempt Resuscitation
[2022-09-19] MEDS: SODIUM CHLORIDE FLUSH 0.9% 10 ML SYRINGE IVP PRN (04:15)
[2022-09-19] MEDS: ZINC OXIDE 20% OINT 30 GM TUBE TOP PRN (04:15)
[2022-09-19] MEDS: CARBIDOPA/LEVODOPA 25 MG/100 MG TABLET PEG SCH ×3 (05:11→21:39)
[2022-09-19] MEDS: SODIUM CHLORIDE 0.9% 1,000 ML IV SCH ×3 (05:48→19:18)
[2022-09-19 06:23] LABS: ALBUMIN 2.5 g/dL (3.2-5.5); ALBUMIN/GLOBULIN RATIO 0.9 (1.0-2.2); BILIRUBIN,TOTAL 2.7 mg/dL (0.2-1.0); CALCIUM 7.7 mg/dL (8.5-10.3); CREATININE 0.4 mg/dL (0.6-1.2); POTASSIUM 3.2 mmol/L (3.5-5.0); TOTAL PROTEIN 5.2 g/dL (6.7-8.2)
[2022-09-19] MEDS: MORPHINE 2 MG/ML CARPUJECT IVP PRN ×2 (09:21→14:08)
[2022-09-19] MEDS: ENOXAPARIN 40 MG/0.4 ML SYRINGE SUBQ SCH (09:23)
[2022-09-19] MEDS: PANTOPRAZOLE 40 MG VIAL IVP SCH (09:23)
[2022-09-19] MEDS: SODIUM CHLORIDE FLUSH 0.9% 10 ML SYRINGE IVP SCH ×2 (09:23→15:41)
[2022-09-19] MEDS: POTASSIUM CHLOR 10 MEQ/100 ML 10 MEQ/100 ML BAG IV SCH ×4 (10:10→13:03)
--- NOTE | 2022-09-19 19:12 | PROVIDER PROGRESS NOTE ---
Subjective - Prog Note Date Prog Note Date: 09/19/22 Prog Note Time: 19:10 - Subjective Subjective: September 19, 2022 7:08 PM I saw him briefly this morning, and then again this afternoon. Had a conversation with his son who is visiting from [place]. Son feels that dad seems to be resting more comfortably, not nearly as agitated or restless as he was yesterday. I really not change any treatment for the patient. He is on morphine for pain relief. Today he received a shot at 920 in the morning, and 2 oh 8 in the afternoon and none since then. He has not had any temperature spikes. He is occasionally tachycardic to 105 at 8 this morning but no ta chycardia since this morning. Blood pressure stable. 97 to 96% on room air all day long. But the patient does not have any meaningful conversation with me. Intermittently responsive to his son but his son says that the next sentence structure is mumbling, and he cannot figure out what that wants. Current Medications - Current Medications Current Medications: Active Medications Carbidopa/Levodopa (Carbidopa/Levodopa 25 Mg/100 Mg Tablet) 1 tab PEG TID [facility] Last Admin: 09/19/22 14:09 Dose: 1 tab Enoxaparin Sodium (Enoxaparin 40 Mg/0.4 Ml Syringe) 40 mg SUBQ DAILY [facility] Last Admin: 09/19/22 09:23 Dose: 40 mg Sodium Chloride (Normal Saline 0.9%) 1,000 mls @ 150 mls/hr IV .Q6H40M [facility] Last Admin: 09/19/22 12:33 Dose: 150 mls/hr Morphine Sulfate (Morphine 2 Mg/Ml Carpuject) 2 mg IVP Q2HR PRN PRN Reason: Pain 8 to 10 Last Admin: 09/19/22 14:08 Dose: 2 mg Multi-Ingredient Ointment (Zinc Oxide 20% Oint 30 Gm Tube) 1 applic TOP PRN PRN PRN Reason: Skin Care Last Admin: 09/19/22 04:15 Dose: 1 applic Ondansetron HCl (Ondansetron 4 Mg/2 Ml Vial) 4 mg IVP Q6HR PRN PRN Reason: Nausea / Vomiting Pantoprazole Sodium (Pantoprazole 40 Mg Vial) 40 mg IVP DAILY [facility] Last Admin: 09/19/22 09:23 Dose: 40 mg Sodium Chloride (Sodium Chloride Flush 0.9% 10 Ml Syringe) 10 ml IVP PRN PRN PRN Reason: NEEDED PER PROVIDER ORDERS Last Admin: 09/19/22 04:15 Dose: 10 ml Sodium Chloride (Sodium Chloride Flush 0.9% 10 Ml Syringe) 10 ml IVP 0100,0900,1700 [facility] Last Admin: 09/19/22 15:41 Dose: Not Given Aspirin [Aspirin EC] 81 mg PEG DAILY 10/05/20 Lisinopril [Zestril] 5 mg PEG DAILY 10/05/20 Bisacodyl Supp [Dulcolax Supp] 10 mg [place] DAILY PRN 09/17/22 Carbidopa/Levodopa [Carbidopa-Levodopa 25-100 Tab] 1 tab PEG TID 09/17/22 Famotidine [Pepcid AC] 20 mg PEG DAILY 09/17/22 Melatonin 3 mg PEG QPM 09/17/22 Ondansetron Odt [Zofran Odt] 4 mg PEG Q8H PRN 09/17/22 Senna [Senokot] 17.2 mg PEG QPM PRN 09/17/22 Tamsulosin HCl [Flomax] 0.4 mg PEG DAILY 09/17/22 guaiFENesin LIQUID [Robitussin Liquid] 20 ml PEG Q4HR PRN 09/17/22 polyethylene glycoL 3350 [Miralax] 17 gm PEG DAILY PRN 09/17/22 traZODone [Desyrel] 50 mg PEG QPM 09/17/22 Mineral Oil [Mineral Oil Enema] 1 unit [place] PRN PRN 09/18/22 Objective - Vital Signs/Intake & Output Reviewed Vital Signs: Yes Vital Signs: Vital Signs x48h Temp Pulse Resp BP Pulse Ox 09/19/22 15:55 36.3 C L 83 16 142/77 H 97 Intake & Output: Intake & Output 09/16/22 09/17/22 09/18/22 09/19/22 23:59 23:59 23:59 23:59 Intake Total 2245 3705 2300 Output Total 100 Balance 2145 3705 2300 - Objective General Appearance: positive: No acute distress (He appears to be sleeping comfortably. Slightly sonorous respiration. But does respond to my voice and will wake up and start mumbling but then go back to sleep.) Eyes Bilateral: positive: PERRL, EOMI ENT: positive: No signs of dehydration Neck: positive: No JVD. negative: Stiff neck Respiratory: positive: No respiratory distress, Rhonchi. negative: Wheezes, Rales Cardiovascular: positive: Regular rate & rhythm Abdomen: positive: Tenderness (He wakes up with my palpation. Does not like me touching his epigastrium and upper abdomen. Still does not like me touching his lower abdomen but he does not seem to grimace with that when I palpate.), Other (Hypoactive bowel sounds). negative: Guarding, Rebound Skin: positive: Warm, Dry, Diaphoresis Extremities: positive: Full ROM, No pedal edema Neurologic/Psychiatric: positive: CN's nml (2-12), Motor nml (But no meaningful following of commands. He is spontaneously moving his arms and legs), Di soriented to person, Disoriented to place, Disoriented to time, Slurred/abnml speech (Intermittent mumbling, no clear sentence structure on a regular basis). negative: Facial droop - Lab Results Fish Bones: 09/18/22 05:20 09/19/22 05:31 Other Labs: Lab Results x24hrs 09/19/22 Range/Units 05:31 Sodium 140 (135-145) mmol/L Potassium 3.2 L (3.5-5.0) mmol/L Chloride 112 H (101-111) mmol/L Carbon Dioxide 24 (21-32) mmol/L Anion Gap 4.0 L (6-13) BUN 27 H (6-20) mg/dL Creatinine 0.4 L (0.6-1.2) mg/dL Estimated GFR (MDRD) 206 (>89) Glucose 73 (70-100) mg/dL Calcium 7.7 L (8.5-10.3) mg/dL Total Bilirubin 2.7 H (0.2-1.0) mg/dL AST 69 H (10-42) IU/L ALT 55 (10-60) IU/L Alkaline Phosphatase 159 H (42-121) IU/L Total Protein 5.2 L (6.7-8.2) g/dL Albumin 2.5 L (3.2-5.5) g/dL Globulin 2.7 (2.1-4.2) g/dL Albumin/Globulin Ratio 0.9 L (1.0-2.2) ABX Reporting Has patient been on IV antibiotics over the past 48 hours?: No Assessment/Plan - Problem List (1) Pancreatitis Impression: After reviewing the record and looking at the MRCP. He has sludge. He has no history of alcoholic pancreatitis. No history of alcohol abuse. He does not have common bile duct dilatation. He is not on any medications that would do this. But in reviewing the sludge, that is the only conclusion I can come to that it is biliary in nature. However, his acute pancreatitis needs to be put in context of a recent neurological event. Unfortunately the family is not clear what the event is because the neurologist is not clear what the event is. The patient quickly deteriorated and was placed in a care home. He has been seen by neurology and they are going to continue a work-up. But his father never wanted any of this done. I did advance care planning conversation on September 18. His 2 sons wanted me to continue being supportive of this gentleman as he gets through this episode of pancreatitis. Once he has recovered or improved, they will then make further decisions. And they would like further advance care planning conversation at the end of this week. Today is Saturday. The main lab abnormality today shows a reduction in protein status. He is malnourished and is getting more malnourished. Bilirubin is improving, liver enzymes are improving, and lipase is ordered for tomorrow but not today. Yesterday he had gotten worse with his lipase. Plan: Continue IV fluids, morphine 2 mg IV push every 2 hours as needed pain, Zofran 4 mg IV push every 6 hours as needed nausea, Protonix 40 mg IV push. I have him n.p.o. Qualifiers: Chronicity: acute Pancreatitis type: biliary (2) Parkinsons Impression: This diagnosis is in question as well. He is on carbidopa levodopa. Recently reduced. Family thought it was 4 times a day but review his medication list from the care home shows it to be 3 times a day. As such have reduced it to 3 times a day. It has been resumed and being put through his PEG tube. No change in this medication right now Once he has gotten through this acute episode of pancreatitis, I will then reintroduce the issue of rehab with his sons. They will have to guide me on fut ure plans for him. (3) Delirium Impression: Is understandable. He is an elderly gentleman that had a recent undiagnosed neurological event, is living in a care home, and has had a sharp change in mental status since July 31. Sons have been distressed at seeing their dad reach out, mumble, and not be completely aware. I reassured them as much as I can and today that what I am seeing is an elderly person with delirium in the hospital. I am hoping that will kat once he is in his usual setting. In the meantime nursing is frequently evaluating him to make sure he does not pull out an NG, or an IV. I am avoiding the use of benzodiazepines. (4) Transaminitis Impression: Laboratory Tests 09/17/22 09/17/22 09/18/22 05:14 10:05 05:20 Total Bilirubin 3.2 H 3.6 H 3.2 H AST 246 H 236 H 151 H ALT 237 H 102 H 44 Alkaline Phosphatase 176 H 182 H 222 H Lipase 312 H 1164 H Laboratory Tests 09/19/22 05:31 Total Bilirubin 2.7 H AST 69 H ALT 55 Alkaline Phosphatase 159 H Labs are improving with regards to liver function studies. There is no history of alcohol abuse. No history of liver failure with use of Tylenol or other drugs. Currently his transaminitis is attributed to the same reason he is pancreatitis. Some injury to the common bile duct this most likely sludge or a passed stone that were not aware of. Plan:, Supportive measures to control pain, hydration with IV fluids, n.p.o. status.
[2022-09-20] MEDS: SODIUM CHLORIDE FLUSH 0.9% 10 ML SYRINGE IVP SCH ×3 (01:06→16:04)
[2022-09-20] MEDS: SODIUM CHLORIDE 0.9% 1,000 ML IV SCH (01:43)
[2022-09-20] MEDS: CARBIDOPA/LEVODOPA 25 MG/100 MG TABLET PEG SCH ×3 (05:29→21:22)
[2022-09-20 06:02] LABS: BASOPHILS % (AUTO) 0.3 %; EOSINOPHILS # (AUTO) 0.2 10^3/uL (0.0-0.7); EOSINOPHILS % (AUTO) 1.2 %; HCT - HEMATOCRIT 37.8 % (42.0-52.0); HGB - HEMOGLOBIN 13.1 g/dL (14.0-18.0); LYMPHOCYTES # (AUTO) 0.7 10^3/uL (1.5-3.5); LYMPHOCYTES % (AUTO) 5.2 %; MEAN CORPUSCULAR HEMOGLOBIN 33.5 pg (27.0-31.0); MEAN CORPUSCULAR HGB CONC 34.7 g/dL (32.0-36.0); MEAN CORPUSCULAR VOLUME 96.7 fL (80.0-94.0); MEAN PLATELET VOLUME 9.3 fL (7.4-11.4); MONOCYTES # (AUTO) 0.9 10^3/uL (0.0-1.0); MONOCYTES % (AUTO) 6.6 %; NEUTROPHILS # (AUTO) 11.2 10^3/uL (1.5-6.6); NEUTROPHILS % (AUTO) 86.3 %; PLT - PLATELET COUNT 191 10^3/uL (130-450); RED BLOOD COUNT 3.91 10^6/uL (4.70-6.10); RED CELL DISTRIBUTION WIDTH 13.5 % (12.0-15.0); WHITE BLOOD COUNT 12.9 x10^3/uL (4.8-10.8)
[2022-09-20 06:16] LABS: ALBUMIN 2.5 g/dL (3.2-5.5); ALBUMIN/GLOBULIN RATIO 0.9 (1.0-2.2); BILIRUBIN,TOTAL 2.5 mg/dL (0.2-1.0); CALCIUM 7.8 mg/dL (8.5-10.3); CREATININE 0.4 mg/dL (0.6-1.2); POTASSIUM 3.1 mmol/L (3.5-5.0); TOTAL PROTEIN 5.3 g/dL (6.7-8.2)
[2022-09-20] MEDS ORDERED: SODIUM CHLORIDE 0.9% 1,000 ML IV SCH (08:14)
[2022-09-20] MEDS: MORPHINE 2 MG/ML CARPUJECT IVP PRN ×5 (08:36→21:22)
[2022-09-20] MEDS: ENOXAPARIN 40 MG/0.4 ML SYRINGE SUBQ SCH (08:50)
[2022-09-20] MEDS: POTASSIUM CHLOR 10 MEQ/100 ML 10 MEQ/100 ML BAG IV SCH ×2 (08:51→09:56)
[2022-09-20] MEDS: PANTOPRAZOLE 40 MG VIAL IVP SCH (08:51)
[2022-09-20] MEDS ORDERED: DIATR MEGLU/DIATRIZOATE SODIUM 120 ML BOTTLE PO ONE ×2 (11:00→12:00)
--- NOTE | 2022-09-20 12:04 | XRAY Report ---
PROCEDURE: Abdomen 1 View X-Ray INDICATIONS: PEG placement TECHNIQUE: One view of the abdomen acquired. COMPARISON: None. FINDINGS: Enteric contrast was injected through a pre-existing PEG tube. The contrast remains within the stomac h and proximal duodenum. No evidence of perforation. Normal bowel gas pattern. Underlying osseous str uctures show degenerative changes in the lumbar spine. IMPRESSION: Patent PEG tube within the stomach. No extravasation. Reviewed by: Norbert Kc MD on 09/20/2022 11:03 AM SARAH Approved by: Norbert Kc MD on 09/20/2022 11:03 AM SARAH Station ID: [id number]
--- NOTE | 2022-09-20 13:45 | PROVIDER PROGRESS NOTE ---
Subjective - Prog Note Date Prog Note Date: 09/20/22 Prog Note Time: 13:42 - Subjective Subjective: His restless movements, intermittent garbled speech have resolved. He is calm. Resting well. Opens his eyes in response to my questions more appropriately but still not fully communicative. He does not appear to have any abdominal pain by exam. His lipase is normal today at 22. Son reminds us that all of his abdominal pain and bloating started with bolus tube feedings. So I ordered a plain film with Gastrografin into the PEG. I wanted to make sure that his PEG was in place, and there is no extravasation. The plain film has come back as PEG in place, no extravasation. Current Medications - Current Medications Current Medications: Active Medications Carbidopa/Levodopa (Carbidopa/Levodopa 25 Mg/100 Mg Tablet) 1 tab PEG TID [facility] Last Admin: 09/20/22 13:25 Dose: 1 tab Enoxaparin Sodium (Enoxaparin 40 Mg/0.4 Ml Syringe) 40 mg SUBQ DAILY [facility] Last Admin: 09/20/22 08:50 Dose: 40 mg Morphine Sulfate (Morphine 2 Mg/Ml Carpuject) 2 mg IVP Q2HR PRN PRN Reason: Pain 8 to 10 Last Admin: 09/20/22 13:24 Dose: 2 mg Multi-Ingredient Ointment (Zinc Oxide 20% Oint 30 Gm Tube) 1 applic TOP PRN PRN PRN Reason: Skin Care Last Admin: 09/19/22 04:15 Dose: 1 applic Ondansetron HCl (Ondansetron 4 Mg/2 Ml Vial) 4 mg IVP Q6HR PRN PRN Reason: Nausea / Vomiting Last Admin: 09/20/22 09:43 Dose: 4 mg Pantoprazole Sodium (Pantoprazole 40 Mg Vial) 40 mg IVP DAILY [facility] Last Admin: 09/20/22 08:51 Dose: 40 mg Potassium Chloride (Potassium Chloride 20 Meq/15 Ml Udc) 40 meq PO TID [facility] Stop: 09/21/22 06:01 Last Admin: 09/20/22 13:24 Dose: 40 meq Sodium Chloride (Sodium Chloride Flush 0.9% 10 Ml Syringe) 10 ml IVP PRN PRN PRN Reason: NEEDED PER PROVIDER ORDERS Last Admin: 09/19/22 04:15 Dose: 10 ml Sodium Chloride (Sodium Chloride Flush 0.9% 10 Ml Syringe) 10 ml IVP 0100,0900,1700 AIME Last Admin: 09/20/22 09:16 Dose: 10 ml Aspirin [Aspirin EC] 81 mg PEG DAILY 10/05/20 Lisinopril [Zestril] 5 mg PEG DAILY 10/05/20 Bisacodyl Supp [Dulcolax Supp] 10 mg GA DAILY PRN 09/17/22 Carbidopa/Levodopa [Carbidopa-Levodopa 25-100 Tab] 1 tab PEG TID 09/17/22 Famotidine [Pepcid AC] 20 mg PEG DAILY 09/17/22 Melatonin 3 mg PEG QPM 09/17/22 Ondansetron Odt [Zofran Odt] 4 mg PEG Q8H PRN 09/17/22 Senna [Senokot] 17.2 mg PEG QPM PRN 09/17/22 Tamsulosin HCl [Flomax] 0.4 mg PEG DAILY 09/17/22 guaiFENesin LIQUID [Robitussin Liquid] 20 ml PEG Q4HR PRN 09/17/22 polyethylene glycoL 3350 [Miralax] 17 gm PEG DAILY PRN 09/17/22 traZODone [Desyrel] 50 mg PEG QPM 09/17/22 Mineral Oil [Mineral Oil Enema] 1 unit GA PRN PRN 09/18/22 Objective - Vital Signs/Intake & Output Reviewed Vital Signs: Yes Vital Signs: Vital Signs x48h Temp Pulse Resp BP Pulse Ox 09/20/22 08:00 36.8 C 79 18 148/72 H 94 Intake & Output: Intake & Output 09/17/22 09/18/22 09/19/22 09/20/22 23:59 23:59 23:59 23:59 Intake Total 2245 3705 3400 2162.5 Output Total 100 Balance 2145 3705 3400 2162.5 - Objective General Appearance: positive: No acute distress, Alert Eyes Bilateral: positive: PERRL, EOMI ENT: positive: No signs of dehydration Neck: positive: No JVD Respiratory: positive: No respiratory distress. negative: Wheezes, Rales, Rhonchi Cardiovascular: positive: Regular rate & rhythm Abdomen: positive: Non-tender, Nml bowel sounds. negative: Guarding, Rebound Skin: positive: Warm, Dry Neurologic/Psychiatric: positive: CN's nml (2-12), Motor nml (As manifested by movement of all extremities spontaneously.No tremors. No jerking.), Disoriented to person, Disoriented to place, Disoriented to time - Lab Results Fish Bones: 09/20/22 05:55 09/20/22 05:55 Other Labs: Lab Results x24hrs 09/20/22 09/20/22 Range/Units 05:55 05:55 WBC 12.9 H (4.8-10.8) x10^3/uL RBC 3.91 L (4.70-6.10) 10^6/uL Hgb 13.1 L (14.0-18.0) g/dL Hct 37.8 L (42.0-52.0) % MCV 96.7 H (80.0-94.0) fL MCH 33.5 H (27.0-31.0) pg MCHC 34.7 (32.0-36.0) g/dL RDW 13.5 (12.0-15.0) % Plt Count 191 (130-450) 10^3/uL MPV 9.3 (7.4-11.4) fL Neut # (Auto) 11.2 H (1.5-6.6) 10^3/uL Lymph # (Auto) 0.7 L (1.5-3.5) 10^3/uL Allen # (Auto) 0.9 (0.0-1.0) 10^3/uL Eos # (Auto) 0.2 (0.0-0.7) 10^3/uL Baso # (Auto) 0.0 (0.0-0.1) 10^3/uL Absolute Nucleated RBC 0.00 x10^3/uL Nucleated RBC % 0.0 /100WBC Sodium 142 (135-145) mmol/L Potassium 3.1 L (3.5-5.0) mmol/L Chloride 116 H (101-111) mmol/L Carbon Dioxide 20 L (21-32) mmol/L Anion Gap 6.0 (6-13) BUN 22 H (6-20) mg/dL Creatinine 0.4 L (0.6-1.2) mg/dL Estimated GFR (MDRD) 206 (>89) Glucose 77 (70-100) mg/dL Calcium 7.8 L (8.5-10.3) mg/dL Total Bilirubin 2.5 H (0.2-1.0) mg/dL AST 49 H (10-42) IU/L ALT 46 (10-60) IU/L Alkaline Phosphatase 157 H (42-121) IU/L Total Protein 5.3 L (6.7-8.2) g/dL Albumin 2.5 L (3.2-5.5) g/dL Globulin 2.8 (2.1-4.2) g/dL Albumin/Globulin Ratio 0.9 L (1.0-2.2) Lipase 22 (22-51) U/L ABX Reporting Has patient been on IV antibiotics over the past 48 hours?: No Assessment/Plan - Problem List (1) Pancreatitis Impression: The cause of his pancreatitis is not clear. He is not an alcoholic, he does not have gallstones but he does have sludge. He does not have hypertriglyceridemia. There is no pancreas divisum. There is no medications that would cause this. His pancreatitis should be placed in context of a sudden neurologic event that was in July. He is already deteriorated quite badly from being an independent elderly gentleman still driving a car to be completely dependent on activities of daily living, with impaired sentence structure, disoriented and living in a nursing home facility. Sons have both said that dad would never have wanted to keep on living in the face of this. But they have been torn about what to do. They had hoped that by putting in a PEG tube he would eat, get stronger and possibly recover. Now he had the pancreatitis on top of this. I had ordered the plain film of the abdomen with Gastrografin today. The PEG is in place and can be used. Plan: Now that labs are normal, and no abdominal pain I will stop IV fluids Resume tube feeds with enough water in the tube feeds Qualifiers: Chronicity: acute Pancreatitis type: biliary (2) Parkinsons Impression: This diagnosis is in question as well. The sons describe that dad's basic neurological deficit has not been clearly diagnosed. The neurologist has thought of upper motor neuron disease, parkinsonian type disease, or a brainstem stroke. He is on carbidopa levodopa. Recently reduced. Family thought it was 4 times a day but review his medication list from the long term shows it to be 3 times a day. As such I have reduced it to 3 times a day. It has been resumed and being put through his PEG tube. No change in this medication right now Now that he is through his episode of pancreatitis, I plan on discharging him in the next 24 to 48 hours if he tolerates his tube feeds. Sons will have to decide how they are going to move forward from this. Today have anticipation th at he will get full rehab with further neurological work-up or with a transition to comfort measures and to focus on palliative care since the patient himself has stated that in the past (3) Delirium resolved. Impression: I have explained to his son's that delirium is understandable in the context of an elderly man in the hospital. He is an elderly gentleman that had a recent undiagnosed neurological event, is living in a long term, and has had a sharp change in mental status since July 31. Sons have been distressed at seeing their dad reach out, mumble, and not be completely aware. I reassured them as much as I can that what I am seeing is an elderly person with delirium in the hospital. I am avoiding the use of benzodiazepines. Today, by exam, a lot of his restlessness and delirium have resolved. He is resting comfortably. (4) Transaminitis Impression: Laboratory Tests 09/17/22 09/17/22 09/18/22 05:14 10:05 05:20 Total Bilirubin 3.2 H 3.6 H 3.2 H AST 246 H 236 H 151 H ALT 237 H 102 H 44 Alkaline Phosphatase 176 H 182 H 222 H Lipase 312 H 1164 H Laboratory Tests 09/19/22 05:31 Total Bilirubin 2.7 H AST 69 H ALT 55 Alkaline Phosphatase 159 H Laboratory Tests 09/20/22 05:55 Total Bilirubin 2.5 H AST 49 H ALT 46 Alkaline Phosphatase 157 H Lipase 22 Labs continue to improve with regards to liver function studies. There is no history of alcohol abuse. No history of liver failure with use of Tylenol or other drugs. Currently his transaminitis is attributed to the same reason he is pancreatitis. Some injury to the common bile duct this most likely sludge or a passed stone that we are not aware of. Plan:, Supportive measures to control pain We will continue. I am stopping IV fluids and now he will get p.o. fluids through his PEG
[2022-09-20] MEDS ORDERED: POTASSIUM CHLORIDE 20 MEQ/15 ML UDC PO SCH (14:00)
[2022-09-20] MEDS: POTASSIUM CHLORIDE 20 MEQ/15 ML UDC PEG SCH (21:22)
[2022-09-21] MEDS: SODIUM CHLORIDE FLUSH 0.9% 10 ML SYRINGE IVP SCH ×3 (00:02→16:50)
[2022-09-21] MEDS: MORPHINE 2 MG/ML CARPUJECT IVP PRN ×4 (03:05→13:27)
[2022-09-21] MEDS: SODIUM CHLORIDE FLUSH 0.9% 10 ML SYRINGE IVP PRN (05:30)
[2022-09-21] MEDS: POTASSIUM CHLORIDE 20 MEQ/15 ML UDC PEG SCH (05:55)
[2022-09-21] MEDS: CARBIDOPA/LEVODOPA 25 MG/100 MG TABLET PEG SCH ×3 (05:55→21:14)
[2022-09-21 05:57] LABS: BASOPHILS % (AUTO) 0.2 %; EOSINOPHILS # (AUTO) 0.1 10^3/uL (0.0-0.7); EOSINOPHILS % (AUTO) 0.7 %; HCT - HEMATOCRIT 37.2 % (42.0-52.0); HGB - HEMOGLOBIN 13.3 g/dL (14.0-18.0); LYMPHOCYTES # (AUTO) 0.7 10^3/uL (1.5-3.5); LYMPHOCYTES % (AUTO) 5.4 %; MEAN CORPUSCULAR HEMOGLOBIN 33.5 pg (27.0-31.0); MEAN CORPUSCULAR HGB CONC 35.8 g/dL (32.0-36.0); MEAN CORPUSCULAR VOLUME 93.7 fL (80.0-94.0); MEAN PLATELET VOLUME 9.1 fL (7.4-11.4); MONOCYTES # (AUTO) 1.2 10^3/uL (0.0-1.0); MONOCYTES % (AUTO) 9.2 %; NEUTROPHILS # (AUTO) 11.3 10^3/uL (1.5-6.6); NEUTROPHILS % (AUTO) 84.1 %; PLT - PLATELET COUNT 222 10^3/uL (130-450); RED BLOOD COUNT 3.97 10^6/uL (4.70-6.10); RED CELL DISTRIBUTION WIDTH 13.5 % (12.0-15.0); WHITE BLOOD COUNT 13.4 x10^3/uL (4.8-10.8)
[2022-09-21 06:05] LABS: ALBUMIN 2.4 g/dL (3.2-5.5); ALBUMIN/GLOBULIN RATIO 0.8 (1.0-2.2); BILIRUBIN,TOTAL 1.6 mg/dL (0.2-1.0); CALCIUM 7.8 mg/dL (8.5-10.3); CREATININE 0.5 mg/dL (0.6-1.2); POTASSIUM 3.6 mmol/L (3.5-5.0); TOTAL PROTEIN 5.3 g/dL (6.7-8.2)
[2022-09-21 06:41] LABS: MAGNESIUM 2.1 mg/dL (1.7-2.8); PHOSPHORUS 1.2 mg/dL (2.5-4.6)
[2022-09-21] MEDS: PANTOPRAZOLE 40 MG VIAL IVP SCH (07:57)
[2022-09-21] MEDS: ENOXAPARIN 40 MG/0.4 ML SYRINGE SUBQ SCH (07:57)
[2022-09-21] MEDS ORDERED: polyethylene glycoL 3350 17 GM PACKET PO SCH (09:00)
[2022-09-21] MEDS ORDERED: MORPHINE SOL 10 MG/0.5 ML ORAL SYRINGE PO PRN (15:35)
--- NOTE | 2022-09-21 16:00 | PROVIDER PROGRESS NOTE ---
Progress Note September 21, 2022 3:30 PM I spoke to his son at length this morning. He and his brother will be committing themselves to taking care of their father 08/10. They have decided that they do not want him to return to the residential facility. His brother will be coming in to stay in his father's house from his grandson. His [id number] is a [employer] and will also be coming from [place]. They do not know if they want hospice yet. His brother is still of the mind to try and find out what the diagnosis is to see if it is a treatable reversible neurological disorder. His brother still wants tube feedings. The son I am speaking to right now would prefer to transition to hospice. The patient has come down considerably in his behavior since yesterday. No restless movement. But still not really awake, no meaningful conversation. Every once around he will say a word but it is out of context anything that is going on. He does grimace with pain when you palpate his left upper quadrant. His labs normalized September 20 from pancreatitis perspective. So I resumed his tube feedings. Son is worried that the tube feedings are somehow causing this pancreatitis. He is rate is supposed to be at about 60 cc an hour. But with the abdominal pain that started again yesterday, his rate is to 20. I did get a Gastrografin study to make sure that the tube was in place and that dye was clearing. Active Medications Carbidopa/Levodopa (Carbidopa/Levodopa 25 Mg/100 Mg Tablet) 1 tab PEG TID [facility] Last Admin: 09/21/22 13:56 Dose: 1 tab Enoxaparin Sodium (Enoxaparin 40 Mg/0.4 Ml Syringe) 40 mg SUBQ DAILY [facility] Last Admin: 09/21/22 07:57 Dose: 40 mg Morphine Sulfate (Morphine Faustina 10 Mg/0.5 Ml Oral Syringe) 10 mg PO Q2HR PRN PRN Reason: Moderate Pain (Level 4-6) Multi-Ingredient Ointment (Zinc Oxide 20% Oint 30 Gm Tube) 1 applic TOP PRN PRN PRN Reason: Skin Care Last Admin: 09/19/22 04:15 Dose: 1 applic Ondansetron HCl (Ondansetron 4 Mg/2 Ml Vial) 4 mg IVP Q6HR PRN PRN Reason: Nausea / Vomiting Last Admin: 09/20/22 09:43 Dose: 4 mg Pantoprazole Sodium (Pantoprazole 40 Mg Vial) 40 mg IVP DAILY [facility] Last Admin: 09/21/22 07:57 Dose: 40 mg Polyethylene Glycol (Polyethylene Glycol 3350 17 Gm Packet) 17 gm PO DAILY [facility] Last Admin: 09/21/22 08:11 Dose: 17 gm Sodium Chloride (Sodium Chloride Flush 0.9% 10 Ml Syringe) 10 ml IVP PRN PRN PRN Reason: NEEDED PER PROVIDER ORDERS Last Admin: 09/21/22 05:30 Dose: 10 ml Sodium Chloride (Sodium Chloride Flush 0.9% 10 Ml Syringe) 10 ml IVP 0100,0900,1700 [facility] Last Admin: 09/21/22 07:58 Dose: 10 ml Vitals: Temperature 36.2, heart rate 96, blood pressure 134/88, respirations 18, 97% on room air 5 foot 11 inches elderly gentleman at 76 kg. Handlebar mustache, unshaven. Does open his eyes to my voice but no meaningful interaction. He does look at me and he looks at his son but again no meaningful interaction. Neck is supple with shotty adenopathy Coarse upper airway sounds as he has sonorous respiration. But no respiratory distress, no use of accessory muscles. Regular rate and rhythm Abdomen is tender. His eyes lie open, and he goes "ow, ow, ow, as I palpate the epigastrium and left upper quadrant. To make sure it is on his rib cage I do press on his anterior rib cage on the left. 1 rib at a time. Pain is not reproduced until I get into the abdominal wall. Hypoactive bowel sounds. Last bowel movement September 16. He is incontinent of urine. No edema present. Spontaneous movement of all extremities, no paralysis. There are no tremors, no jerking. Lab: Sodium 142, potassium 3.6. Chloride 113. BUN 25, creatinine 0.5. Glucose 193 fasting. Yesterday it was 77. The 183's with tube feeds going. Phosphorus is low at 1.2. Magnesium 2.1. Total bili 1.6, coming down. AST and ALT are little bit more elevated than yesterday at 45 and 65 today. Alk phos is 151. Lipase is 19. White cell count is 13.4, hemoglobin 13.3, hematocrit is 37.2, platelets 222 Assessment/Plan - Problem List (1) Pancreatitis Impression: The cause of his pancreatitis is not clear. He is not an alcoholic, he does not have gallstones but he does have sludge. He does not have hypertriglyceridemia. There is no pancreas divisum. There is no medications that would cause this. His pancreatitis should be placed in context of a sudden neurologic event that was in July. He is already deteriorated quite badly from being an independent elderly gentleman still driving a car to be completely dependent on activities of daily living, with impaired sentence structure, disoriented and living in a residential facility. Sons have both said that dad would never have wanted to keep on living in the face of this. But they have been torn about what to do. They had hoped that by putting in a PEG tube he would eat, get stronger and possibly recover. Now he had the pancreatitis on top of this. I had ordered the plain film of the abdomen with Gastrografin and the PEG is in place and can be used. We have not been able to get up to the maximum rate yet. Still at 20 cc. That is because he is having some abdominal pain. Labs are normal with this. Plan: Hold on 20 cc an hour. Adjust water intake in the PEG to make sure he gets adequate water intake. Labs today do not show elevation of lipase. So I am not can to stop tube feedings. He may have just residual pancreatic pain. Qualifiers: Chronicity: acute Pancreatitis type: biliary (2) Parkinsons Impression: This diagnosis is in question as well. The sons describe that dad's basic marco rological deficit has not been clearly diagnosed. The neurologist has thought of upper motor neuron disease, parkinsonian type disease, or a brainstem stroke. He is on carbidopa levodopa. Recently reduced. Family thought it was 4 times a day but review his medication list from the long term shows it to be 3 times a day. As such I have reduced it to 3 times a day. It has been resumed and sandra bangura put through his PEG tube. No change in this medication right now Sons have let me know that they want to take that home. They do not want him to return to long term. As such we are planning for discharge on September 24. We will need to get a hospital bed, bedside commode, [place], and I will order home health with PT/OT. I have also notified the infusion company. They will need to start delivering tube feeds to the house. The pump also needs to be ordered as well. (3) Delirium resolved. Impression: I have explained to his son's that delirium is understandable in the context of an elderly man in the hospital. He is an elderly gentleman that had a recent undiagnosed neurological event, is living in a long term, and has had a sharp change in mental status since July 31. Sons have been distressed at seeing their dad reach out, mumble, and not be completely aware. I reassured them as much as I can that what I am seeing is an elderly person with delirium in the hospital. I am avoiding the use of benzodiazepines. By 09/20 quite a bit if not all of his restlessness and delirium have resolved. He is resting comfortably. (4) Transaminitis Impression: Laboratory Tests 09/17/22 09/17/22 09/18/22 05:14 10:05 05:20 Total Bilirubin 3.2 H 3.6 H 3.2 H AST 246 H 236 H 151 H ALT 237 H 102 H 44 Alkaline Phosphatase 176 H 182 H 222 H Lipase 312 H 1164 H Laboratory Tests 09/19/22 05:31 Total Bilirubin 2.7 H AST 69 H ALT 55 Alkaline Phosphatase 159 H Laboratory Tests 09/20/22 05:55 Total Bilirubin 2.5 H AST 49 H ALT 46 Alkaline Phosphatase 157 H Lipase 22 Laboratory Tests 09/21/22 05:47 Total Bilirubin 1.6 H AST 45 H ALT 65 H Alkaline Phosphatase 151 H Labs continue to improve with regards to liver function studies. There is no history of alcohol abuse. No history of liver failure with use of Tylenol or other drugs. Currently his transaminitis is attributed to the same reason he is pancreatitis. Some injury to the common bile duct this most likely sludge or a passed stone that we are not aware of. Plan: For pain from his pancreatitis,I am changing his pain medication to Roxanol drops, 10 mg every 2 hours as needed For his hypokalemia I will supplement orally with potassium phosphate
[2022-09-21] MEDS: ZINC OXIDE 20% OINT 30 GM TUBE TOP PRN (16:52)
[2022-09-21] MEDS ORDERED: NEUTRA-PHOS 250 MG TABLET PO SCH (17:00)
[2022-09-21] MEDS: MORPHINE SOL 10 MG/0.5 ML ORAL SYRINGE PEG PRN ×2 (18:00→21:15)
[2022-09-21] MEDS: NEUTRA-PHOS 250 MG TABLET PEG SCH (18:01)
[2022-09-22] MEDS: ZINC OXIDE 20% OINT 30 GM TUBE TOP PRN ×2 (02:55→05:56)
[2022-09-22] MEDS: SODIUM CHLORIDE FLUSH 0.9% 10 ML SYRINGE IVP SCH ×3 (02:55→17:04)
[2022-09-22 05:25] LABS: BASOPHILS % (AUTO) 0.2 %; EOSINOPHILS # (AUTO) 0.3 10^3/uL (0.0-0.7); EOSINOPHILS % (AUTO) 2.3 %; HGB - HEMOGLOBIN 13.1 g/dL (14.0-18.0); LYMPHOCYTES # (AUTO) 0.9 10^3/uL (1.5-3.5); LYMPHOCYTES % (AUTO) 6.8 %; MEAN CORPUSCULAR HEMOGLOBIN 33.4 pg (27.0-31.0); MEAN CORPUSCULAR HGB CONC 35.4 g/dL (32.0-36.0); MEAN CORPUSCULAR VOLUME 94.4 fL (80.0-94.0); MEAN PLATELET VOLUME 8.9 fL (7.4-11.4); MONOCYTES # (AUTO) 1.1 10^3/uL (0.0-1.0); MONOCYTES % (AUTO) 8.5 %; NEUTROPHILS # (AUTO) 10.6 10^3/uL (1.5-6.6); NEUTROPHILS % (AUTO) 81.9 %; PLT - PLATELET COUNT 216 10^3/uL (130-450); RED BLOOD COUNT 3.92 10^6/uL (4.70-6.10); RED CELL DISTRIBUTION WIDTH 13.6 % (12.0-15.0); WHITE BLOOD COUNT 12.9 x10^3/uL (4.8-10.8)
[2022-09-22 05:38] LABS: ALBUMIN 2.3 g/dL (3.2-5.5); ALBUMIN/GLOBULIN RATIO 0.8 (1.0-2.2); BILIRUBIN,TOTAL 1.6 mg/dL (0.2-1.0); CALCIUM 7.8 mg/dL (8.5-10.3); CREATININE 0.4 mg/dL (0.6-1.2); POTASSIUM 3.7 mmol/L (3.5-5.0); TOTAL PROTEIN 5.3 g/dL (6.7-8.2)
[2022-09-22] MEDS: CARBIDOPA/LEVODOPA 25 MG/100 MG TABLET PEG SCH ×3 (05:56→21:44)
[2022-09-22] MEDS: MORPHINE SOL 10 MG/0.5 ML ORAL SYRINGE PEG PRN ×3 (05:56→16:57)
[2022-09-22] MEDS: NEUTRA-PHOS 250 MG TABLET PEG SCH ×2 (08:19→11:43)
[2022-09-22] MEDS: ENOXAPARIN 40 MG/0.4 ML SYRINGE SUBQ SCH (08:19)
[2022-09-22] MEDS: PANTOPRAZOLE 40 MG VIAL IVP SCH (08:20)
[2022-09-22] MEDS: polyethylene glycoL 3350 17 GM PACKET PEG SCH (08:20)
--- NOTE | 2022-09-22 19:43 | PROVIDER PROGRESS NOTE ---
Progress Note September 22, 2022 7:36 PM Quiet day for this gentleman. There have been no changes in vital signs. He is tachycardic later this afternoon but then it goes back down into the 80s. Blood pressure is stable. He is tolerating his tube feedings at a low rate of 20 cc. Sons are getting ready to transition him to home the day after tomorrow. Temperature is 36.4, heart rate 144, blood pressure 147/76. 97% on room air. This gentleman has been agitated and restless when I first met him. And then the agitation, constant movement abated and he lays quietly in his bed. He does open his eyes occasionally. Does occasionally say 1 word which is out of context anything I may be saying or asking. He is thin, unshaven, handlebar mustache. Neck is supple. Lungs have coarse upper airway sounds but are otherwise clear. There is no tachypnea or use of accessory muscles PMI is normally placed. Occasionally tachycardic. Abdomen is soft. He does open his eyes when I palpate around his PEG, and epigastrium. 2 days ago he was going "ow, ow, ow with this. He has not had any exclamation of the pain yesterday or today. Last bowel meant September 16. Extremities with no edema Neurologically no meaningful conversation. He does respond to his son's, does respond to me but no meaningful responses. He is incontinent of urine. He is completely dependent for his activities of daily living. Is able to move all extremities spontaneously especially if there is pain. But there is no meaningful use to his hand movements. Lab: Sodium 145, potassium 3.7. Chloride 116. BUN 23, creatinine 0.4. Glucose 162. His glucose has come up since we started tube feedings again. Calcium 7.8. Total bili 1.6. AST and ALT are now normal. Alk phos continues to come down at 149 today. Lipase is low at 19. White cell count 12.9, hemoglobin 13.1. Platelets 216. Assessment/plan 1. Pancreatitis. In the differential diagnosis of why people have pancreatitis he is not an alcoholic nor does he have gallstones. He does have sludge. 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 The pancreatitis is superimposed on an overall picture of a gentleman who had an undiagnosed neurological event in July. He has never recovered from that event. He is living in a shelter facility. He has a PEG tube because he cannot eat. After his pancreatitis resolved, I verified that the PEG was still working with Gastrografin and resume tube feeds September 20. He had immediate but mild abdominal pain. As such we have kept the rate of 20 cc an hour. He is getting free water as well. Labs do not show worsening of lipase or liver enzymes. I have made sure that the PEG was in place and working so I do not think it is a PEG tube malfunction causing his abdominal pain. Sounds plan on continuing tube feeds at home until they want to transition him to hospice. 2. Parkinson's disorder/delirium/transaminitis. These have all been ongoing problems that have been monitoring while in the hospital. These are all have resolved or getting better. Our main focus is to now get him home September 24. Sons will then have home health PT and OT as well as private caregivers. Social work has touch base with him about getting equipment.
[2022-09-23] MEDS: MORPHINE SOL 10 MG/0.5 ML ORAL SYRINGE PEG PRN ×3 (00:15→13:24)
[2022-09-23] MEDS: SODIUM CHLORIDE FLUSH 0.9% 10 ML SYRINGE IVP SCH ×3 (00:15→16:38)
[2022-09-23] MEDS: CARBIDOPA/LEVODOPA 25 MG/100 MG TABLET PEG SCH ×3 (05:29→22:16)
[2022-09-23 05:56] LABS: BASOPHILS % (AUTO) 0.3 %; EOSINOPHILS # (AUTO) 0.3 10^3/uL (0.0-0.7); EOSINOPHILS % (AUTO) 2.7 %; HCT - HEMATOCRIT 38.1 % (42.0-52.0); HGB - HEMOGLOBIN 13.5 g/dL (14.0-18.0); LYMPHOCYTES # (AUTO) 1.2 10^3/uL (1.5-3.5); LYMPHOCYTES % (AUTO) 11.1 %; MEAN CORPUSCULAR HEMOGLOBIN 33.2 pg (27.0-31.0); MEAN CORPUSCULAR HGB CONC 35.4 g/dL (32.0-36.0); MEAN CORPUSCULAR VOLUME 93.6 fL (80.0-94.0); MEAN PLATELET VOLUME 9.3 fL (7.4-11.4); MONOCYTES # (AUTO) 0.8 10^3/uL (0.0-1.0); MONOCYTES % (AUTO) 7.6 %; NEUTROPHILS # (AUTO) 8.2 10^3/uL (1.5-6.6); PLT - PLATELET COUNT 253 10^3/uL (130-450); RED BLOOD COUNT 4.07 10^6/uL (4.70-6.10); RED CELL DISTRIBUTION WIDTH 13.3 % (12.0-15.0); WHITE BLOOD COUNT 10.5 x10^3/uL (4.8-10.8)
[2022-09-23 06:08] LABS: PHOSPHORUS 1.7 mg/dL (2.5-4.6)
[2022-09-23 06:09] LABS: ALBUMIN 2.3 g/dL (3.2-5.5); ALBUMIN/GLOBULIN RATIO 0.7 (1.0-2.2); BILIRUBIN,TOTAL 1.5 mg/dL (0.2-1.0); CREATININE 0.5 mg/dL (0.6-1.2); POTASSIUM 3.2 mmol/L (3.5-5.0); TOTAL PROTEIN 5.6 g/dL (6.7-8.2)
[2022-09-23] MEDS: ENOXAPARIN 40 MG/0.4 ML SYRINGE SUBQ SCH (08:09)
[2022-09-23] MEDS: PANTOPRAZOLE 40 MG VIAL IVP SCH (08:09)
[2022-09-23] MEDS: polyethylene glycoL 3350 17 GM PACKET PEG SCH (08:10)
[2022-09-23] MEDS: ZINC OXIDE 20% OINT 30 GM TUBE TOP PRN (14:51)
--- NOTE | 2022-09-23 19:10 | PROVIDER PROGRESS NOTE ---
Progress Note September 23, 2022 12:30 PM Son is at the bedside. Patient is asleep. Room is quiet. When I walked up to the patient and call his name, he opens his eyes and goes "what" and then goes back to sleep. Son states that dad seems to be comfortably sleeping a lot. He describes that he was regaining some functionality when he was at [facility]. He was walking, doing PT, so this is such a deterioration in functionality for this patient due to this pancreatitis. Active Medications Carbidopa/Levodopa (Carbidopa/Levodopa 25 Mg/100 Mg Tablet) 1 tab PEG TID [facility] Last Admin: 09/23/22 13:24 Dose: 1 tab Enoxaparin Sodium (Enoxaparin 40 Mg/0.4 Ml Syringe) 40 mg SUBQ DAILY [facility] Last Admin: 09/23/22 08:09 Dose: 40 mg Morphine Sulfate (Morphine Faustina 10 Mg/0.5 Ml Oral Syringe) 10 mg PEG Q2HR PRN PRN Reason: Moderate Pain (Level 4-6) Last Admin: 09/23/22 13:24 Dose: 10 mg Multi-Ingredient Ointment (Zinc Oxide 20% Oint 30 Gm Tube) 1 applic TOP PRN PRN PRN Reason: Skin Care Last Admin: 09/23/22 14:51 Dose: 1 applic Ondansetron HCl (Ondansetron 4 Mg/2 Ml Vial) 4 mg IVP Q6HR PRN PRN Reason: Nausea / Vomiting Last Admin: 09/20/22 09:43 Dose: 4 mg Pantoprazole Sodium (Pantoprazole 40 Mg Vial) 40 mg IVP DAILY [facility] Last Admin: 09/23/22 08:09 Dose: 40 mg Polyethylene Glycol (Polyethylene Glycol 3350 17 Gm Packet) 17 gm PEG DAILY [facility] Last Admin: 09/23/22 08:10 Dose: 17 gm Sodium Chloride (Sodium Chloride Flush 0.9% 10 Ml Syringe) 10 ml IVP PRN PRN PRN Reason: NEEDED PER PROVIDER ORDERS Last Admin: 09/21/22 05:30 Dose: 10 ml Sodium Chloride (Sodium Chloride Flush 0.9% 10 Ml Syringe) 10 ml IVP 0100,0900,1700 [facility] Last Admin: 09/23/22 16:38 Dose: 10 ml Aspirin [Aspirin EC] 81 mg PEG DAILY 10/05/20 Lisinopril [Zestril] 5 mg PEG DAILY 10/05/20 Bisacodyl Supp [Dulcolax Supp] 10 mg NC DAILY PRN 09/17/22 Carbidopa/Levodopa [Carbidopa-Levodopa 25-100 Tab] 1 tab PEG TID 09/17/22 Famotidine [Pepcid AC] 20 mg PEG DAILY 09/17/22 Melatonin 3 mg PEG QPM 09/17/22 Ondansetron Odt [Zofran Odt] 4 mg PEG Q8H PRN 09/17/22 Senna [Senokot] 17.2 mg PEG QPM PRN 09/17/22 Tamsulosin HCl [Flomax] 0.4 mg PEG DAILY 09/17/22 guaiFENesin LIQUID [Robitussin Liquid] 20 ml PEG Q4HR PRN 09/17/22 polyethylene glycoL 3350 [Miralax] 17 gm PEG DAILY PRN 09/17/22 traZODone [Desyrel] 50 mg PEG QPM 09/17/22 Mineral Oil [Mineral Oil Enema] 1 unit NC PRN PRN 09/18/22 Vitals: Temperature 36.3. Heart rate 96. Blood pressure 146/83. Respirations 20. 99% on room air He is an elderly gentleman, cachectic. Tolerating tube feeds. Shotty neck adenopathy When he is asleep he has snoring respirations. No respiratory distress. When I wake him up snoring stops, lungs are clear. Regular rate and rhythm Abdomen is soft. He tells me he does not hurt when I palpate him. He is get the PEG in the left upper quadrant. Extremities are without edema Disoriented to person, place, time. Is not able to sit up on his own. Rarely speaks. Almost mute. Labs: Sodium 146, potassium 3.2, chloride 113. BUN 23, creatinine creatinine 0.5. He needs more free water. Sodium has been gradually climbing from 142 on September 20. Total bili is 1.5 and continues to come down from 2.5. AST and ALT are normal. Lipase 19. White cell count is normal at 10.5. Hemoglobin 13.5. MCV 93, platelets 253 Assessment/plan 1. Pancreatitis. In the differential diagnosis of why people have pancreatitis he is not an alcoholic nor does he have gallstones. He does have sludge. 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 The pancreatitis is superimposed on an overall picture of a gentleman who had an undiagnosed neurological event in July. He was found down, unable to move his left side very well for a while. Was treated for rhabdomyolysis and renal failure.He has never recovered from that event. He is living in a [facility]dc facility. But at the [facility] facility he was able to ambulate, do physical therapy. Look forward to PT. Was not eating because of problems with swallowing and had a PEG tube. He and his sons were in the midst of still trying to figure out what the event was in July from a neurologic perspective. Abdominal pain started as a his tube feedings started. After his pancreatitis resolved, I verified that the PEG was still working with Gastrografin and resume tube feeds September 20. He had immediate but mild abdominal pain. As such we have kept the rate of 20 cc an hour. He is getting free water as well. Labs do not show worsening of lipase or liver enzymes. I have made sure that the PEG was in place and working so I do not think it is a PEG tube malfunction causing his abdominal pain. Sons plan on continuing tube feeds at home until they want to transition him to hospice. I have asked nursing to increase his tube feeds to 40 cc an hour. They need to increase the free water as well. His sodium is climbing. 2. Parkinson's disorder/delirium/transaminitis. These have all been ongoing problems that have been monitoring while in the hospital. These are all have resolved or getting better. Our main focus is to now get him home September 24. Sons will then have home health PT and OT as well as private caregivers. Social work has touch base with him about getting equipment.
[2022-09-24] MEDS: SODIUM CHLORIDE FLUSH 0.9% 10 ML SYRINGE IVP SCH ×3 (05:11→19:11)
[2022-09-24] MEDS: CARBIDOPA/LEVODOPA 25 MG/100 MG TABLET PEG SCH ×3 (05:11→22:08)
[2022-09-24 06:12] LABS: BASOPHILS % (AUTO) 0.3 %; EOSINOPHILS # (AUTO) 0.3 10^3/uL (0.0-0.7); EOSINOPHILS % (AUTO) 2.8 %; HCT - HEMATOCRIT 37.7 % (42.0-52.0); HGB - HEMOGLOBIN 13.1 g/dL (14.0-18.0); LYMPHOCYTES # (AUTO) 1.1 10^3/uL (1.5-3.5); LYMPHOCYTES % (AUTO) 10.5 %; MEAN CORPUSCULAR HEMOGLOBIN 32.5 pg (27.0-31.0); MEAN CORPUSCULAR HGB CONC 34.7 g/dL (32.0-36.0); MEAN CORPUSCULAR VOLUME 93.5 fL (80.0-94.0); MEAN PLATELET VOLUME 9.5 fL (7.4-11.4); MONOCYTES # (AUTO) 0.7 10^3/uL (0.0-1.0); MONOCYTES % (AUTO) 7.1 %; NEUTROPHILS # (AUTO) 8.1 10^3/uL (1.5-6.6); NEUTROPHILS % (AUTO) 78.7 %; PLT - PLATELET COUNT 276 10^3/uL (130-450); RED BLOOD COUNT 4.03 10^6/uL (4.70-6.10); RED CELL DISTRIBUTION WIDTH 13.1 % (12.0-15.0); WHITE BLOOD COUNT 10.3 x10^3/uL (4.8-10.8)
[2022-09-24 06:32] LABS: ALBUMIN 2.4 g/dL (3.2-5.5); ALBUMIN/GLOBULIN RATIO 0.8 (1.0-2.2); BILIRUBIN,TOTAL 1.6 mg/dL (0.2-1.0); CREATININE 0.4 mg/dL (0.6-1.2); POTASSIUM 3.1 mmol/L (3.5-5.0); TOTAL PROTEIN 5.6 g/dL (6.7-8.2)
[2022-09-24] MEDS: MORPHINE SOL 10 MG/0.5 ML ORAL SYRINGE PEG PRN (08:48)
[2022-09-24] MEDS: ENOXAPARIN 40 MG/0.4 ML SYRINGE SUBQ SCH (08:55)
[2022-09-24] MEDS: polyethylene glycoL 3350 17 GM PACKET PEG SCH (08:55)
[2022-09-24] MEDS: PANTOPRAZOLE 40 MG VIAL IVP SCH (08:55)
[2022-09-24] MEDS: ZINC OXIDE 20% OINT 30 GM TUBE TOP PRN ×2 (09:01→13:38)
--- NOTE | 2022-09-24 22:16 | PROVIDER PROGRESS NOTE ---
Progress Note September 24, 2022 10 PM Patient was seen earlier this morning. Our discussion with the family had been that he would be discharged today and his sons were anxious in taking him home. They did not want to return to the detention facility. Today they feel woefully unprepared to take him home. The daughter in law, who is a ATHLETIC AGENT, has expressed her opinion regarding what the patient would want. All along both sons were very clear that they are pressing for continued treatment and tube feeds was more on their part. Did dad would never have wanted any of this. We discussed this at the beginning of his admission. Nevertheless they wanted to press forward and see if he could improve after his pancreatitis episode. While he has improved from his pancreatitis and his abdominal pain is resolved and he has now resumed his tube feeds, he is not waking up to have any meaningful conversation. He was walking to physical therapy before this admission and he is lost so much ground that he can no longer sit up. As such, with encouragement from his [id number], the patient's sons have decided to transition him to hospice. They are still unprepared to take him home today because they have no equipment. Hospice is stated that they will have equipment there tomorrow and will open him up to their services on September 26. Vitals: Temperature 36.7. Heart rate is 80. Blood pressure is 156/75. Respirations 20. 97% on room air. He opens his eyes, says sheldon once, but after that has no meaningful conversation with me. Sometimes words are mumbling, but then he is mute. He does respond to voice and will struggle to open his eyes. He will spontaneously move upper and lower extremities but no meaningful movement to feed himself, or to try and get out of bed. Neck has shotty adenopathy Lungs have coarse upper airway sounds without tachypnea but he is lungs are getting coarser and coarser and there sounds Regular rate and rhythm Abdomen that soft, nondistended, PEG tube in place. No redness or heat around the PEG tube. Normal bowel sounds. Extremities without edema Assessment/plan 1. Pancreatitis. That is resolved. His labs are returned to normal. I resumed his tube feeds. It is unclear why this gentleman had pancreatitis in the first place. Nevertheless the pancreatitis was in context of someone who had a sudden neurological event on July 30. He was found down on July 31. Treated for rhabdomyolysis and renal failure. When he was discharged she was not able to go home and has been in detention facility for rehab. The family was trying to figure out through neurological consult what the event was. With this admission, the patient lost a lot of ground. But sons were torn about whether to treat dad or not since they knew he never wanted this. Nevertheless they asked me to continue treating for pancreatitis and have supported him through this event and now labs are normal. As he is now being transitioned to go to home at their request, the patient's [id number] has suggested hospice again. Today they are willing to do that and I am writing for hospice orders. Patient will be discharged tomorrow. At discharge they will have to make the decision if they want to continue tube feeds with free water. Or if they are going to stop the tube feeds and keep their dad comfortable. I will stop labs for the rest of his stay. We will continue vital checks.I will stop Lovenox, stop Protonix IV. 2. Parkinson's disorder/delirium/transaminitis. These have all been ongoing problems that have been monitoring while in the hospital. These are all have resolved or getting better. 3. Hypokalemia. I was going to supplement that. But now that he is going into hospice, I have opted not to give him potassium supplementation.
--- NOTE | 2022-09-24 22:22 | Discharge Plan ---
Discharge Plan Problem Reviewed?: Yes Follow-Up Care: Hospice No Smoking: If you smoke, Please STOP! Call for help. <Rozina Hancock - Last Filed: 09/24/22 22:23> Problem Reviewed?: Yes Follow-Up Care: Hospice No Smoking: If you smoke, Please STOP! Call for help. <MarieRasheed Yakelin - Last Filed: 09/25/22 14:34> Disposition: 50 Hospice/Home DC/Xfer Condition: Poor Prescriptions: Morphine Oral Soln [Roxanol] 10 mg PEG Q2HR PRN #10 ml PRN Reason: Moderate Pain (Level 4-6) LORazepam [Ativan] 0.5 mg PO Q6H PRN #10 tablet PRN Reason: Agitation traZODone [Desyrel] 50 mg PO HS PRN #10 tablet PRN Reason: Insomnia Carbidopa/Levodopa 25/100 [Sinemet 25 mg/100 mg] 1 tab PEG TID #30 tab Health Concerns: Mr. Stone had an unexpected neurological event in mid July. Has never recovered from that and has been living in a [facility] facility. Family has been working to try and find out what that neurological event was and has not had a confirmed diagnosis yet and he was getting rehab in the prison facility. Tube feedings were started because he was having problems with swallowing and losing weight. He then had subsequent abdominal pain and was brought to our ED where he is found to have pancreatitis. He has been supported through his episode of pancreatitis and labs are returned to normal. Lipase is normal, liver enzymes are normal. Tube feedings have been resumed. But the patient has not recovered. He has no meaningful speech. He has not been able to work with physical therapy. He is not alert enough to cooperate enough to do a speech evaluation. Family has now decided to transition to hospice and he will be going home. Plan of Treatment: Hospice comfort measures with goal of dying peacefully at home Follow-up with: Ollie Paige MD [Primary Care Provider] -
[2022-09-24] MEDS ORDERED: GLYCOPYRROLATE 1 MG/5 ML VIAL SUBQ PRN (23:43)
[2022-09-24] MEDS ORDERED: SCOPOLAMINE PATCH TOP SCH (23:45)
[2022-09-25] MEDS: ZINC OXIDE 20% OINT 30 GM TUBE TOP PRN (00:23)
[2022-09-25] MEDS: MORPHINE SOL 10 MG/0.5 ML ORAL SYRINGE PEG PRN ×2 (00:23→14:04)
[2022-09-25] MEDS: SODIUM CHLORIDE FLUSH 0.9% 10 ML SYRINGE IVP SCH ×2 (00:44→08:40)
[2022-09-25] MEDS: CARBIDOPA/LEVODOPA 25 MG/100 MG TABLET PEG SCH ×2 (06:22→14:03)
[2022-09-25] MEDS: ENOXAPARIN 40 MG/0.4 ML SYRINGE SUBQ SCH (08:40)
[2022-09-25] MEDS: PANTOPRAZOLE 40 MG VIAL IVP SCH (08:40)
[2022-09-25] MEDS: polyethylene glycoL 3350 17 GM PACKET PEG SCH (08:41)
[2022-09-25] MEDS ORDERED: ACETAMINOPHEN 650 MG SUPP PR PRN (08:54)
[2022-09-25] MEDS ORDERED: POTASSIUM CHLORIDE 20 MEQ/15 ML UDC PEG ONE (09:00)
[2022-09-25] MEDS ORDERED: ACETAMINOPHEN 160 MG/5 ML SUSP UDC PEG PRN (09:00)
--- NOTE | 2022-09-25 14:34 | DISCHARGE SUMMARY ---
Discharge Summary Admit Date: 09/17/22 Discharge Date: 09/25/22 Discharging Provider: TAYLOR Code Status: Do Not Attempt Resuscitation Condition at Discharge: Poor Discharge Disposition: 50 Hospice/Home DC/Xfer Discharge Facility Name: home with hospice care on tomorrow - DIAGNOSES Discharge Diagnoses with Status of Each Condition: 1. Acute pancreatitis. resolved 2. Dysphagiapatient. PEG tube feeding. 3. Hypertension. stable 4. Benign prostatic hypertrophy. stable 5. Advanced Dementia, hospice care 6. Parkinson's disorder/delirium/transaminitis, hospice care 7. encounter to hospice care - HPI History of Present Illness: refer from [facility] on 09/17/22 "This is 81-year-old male who presented to emergency room from nursing facility with chest pain abdominal pain. Patient has G-tube and he was recently started on bolus feeding from the continuous feeding. Patient started complaining of abdominal discomfort belching burping and burning sensation in his chest after bolus feeding was started. He was restless and therefore EMS was called. Patient has dementia and is not able to provide much history. Patient's son is present at bedside who provided most of the history. As per the son, patient is DNR. Patient never had pancreatitis in the past. Patient is not able to provide any history. Patient was given IV Dilaudid and IV fluid bolus in the emergency room. On arrival patient's lipase was 1100 with AST 03/19/1935 and ALT 112 with total bilirubin of 3.6. Patient also underwent MRCP which did not show any sign of choledocholithiasis." - HOSPITAL COURSE Hospital Course: pt was admitted for abdominal pain. pt was found to have Pancreatitis. Patient had an MRCP done which show no acute process to explain patient's pancreatitis. Pt had an undiagnosed neurological event in July. He was found down, unable to move his left side very well for a while. Was treated for rhabdomyolysis and renal failure.He has never recovered from that event.Patient developed dysphagia from undiagnosed neurological event in July, and the patient had a PEG tube for feeding. Patient had a physical therapist Consultation for evaluation and treatm ent, unfortunately he is lost so much ground that he can no longer sit up. Patient continue confusion/delirium. After the patient was treated in the hospital, patient's lipase become normal range, patient's abdominal pain was resolved, patient was on resume of PEG feeding. Another provider discussed the advance care plan with Patient's son. after The patient's discussed with his family, patient's son requests hospice care at home. Social work was consulted for discharge planning, patient is discharge to home with hospice care beginning on tomorrow. Patient is prescribed Sinemet, trazodone, morphine, Ativan for PRN per pt's son's request. - ALLERGIES Allergies/Adverse Reactions: Allergies Allergy/AdvReac Type Severity Reaction Status Date / Time No Known Drug Allergies Allergy Verified 09/17/22 04:22 - MEDICATIONS Home Medications: Ambulatory Orders Medication Instructions Recorded Confirmed Bisacodyl Supp [Dulcolax Supp] 10 mg [place] DAILY PRN 09/17/22 09/17/22 Ondansetron Odt [Zofran Odt] 4 mg PEG Q8H PRN 09/17/22 09/18/22 guaiFENesin LIQUID [Robitussin 20 ml PEG Q4HR PRN 09/17/22 09/18/22 Liquid] Carbidopa/Levodopa 25/100 [Sinemet 1 tab PEG TID #30 tab 09/25/22 25 mg/100 mg] LORazepam [Ativan] 0.5 mg PO Q6H PRN #10 tablet 09/25/22 Morphine Oral Soln [Roxanol] 10 mg PEG Q2HR PRN #10 ml 09/25/22 traZODone [Desyrel] 50 mg PO HS PRN #10 tablet 09/25/22 - PHYSICAL EXAM AT DISCHARGE General Appearance: positive: Alert, Anxious Eyes Bilateral: positive: Normal inspection ENT: positive: No signs of dehydration Neck: positive: Nml inspection Respiratory: positive: Chest non-tender Cardiovascular: positive: Regular rate & rhythm Peripheral Pulses: positive: 2+ Abdomen: positive: Non-tender Skin: positive: Color nml Extremities: positive: Non-tender, Other (Patient could not sit up) Neurologic/Psychiatric: positive: Disoriented to person, Disoriented to place, Disoriented to time - LABS Result Diagrams: 09/24/22 05:10 09/24/22 05:10 - FOLLOW UP Follow Up: hospice care - TIME SPENT Time Spent in Discharge (Minutes): 30
[2022-09-25 14:42] VITALS: BP 149/73
== END 2022-09-25 14:50 | disposition hospice, home (50) | DRG 439 ==
LOC: EDUNIT# → ED 04:10 → MS2 19:44 → MS3 09-25 21:44
PROVIDERS: ADMIT Internal Medicine; ATTEND Nurse Practitioner Gerontology
DX: K85.10 Biliary acute pancreatitis without necrosis or infection (principal); E46 Unspecified protein-calorie malnutrition; R74.8 Abnormal levels of other serum enzymes; F02.84 Dementia in other diseases classified elsewhere, unspecified severity, with anxiety; F02.A0 Dementia in other diseases classified elsewhere, mild, without behavioral disturbance, psychotic disturbance, mood disturbance, and anxiety; F41.9 Anxiety disorder, unspecified; R13.10 Dysphagia, unspecified; Z93.1 Gastrostomy status; I45.10 Unspecified right bundle-branch block; I10 Essential (primary) hypertension; G20 Parkinson's disease; R41.0 Disorientation, unspecified; Z66 Do not resuscitate; R07.9 Chest pain, unspecified; R74.01 Elevation of levels of liver transaminase levels; R00.0 Tachycardia, unspecified; Z68.23 Body mass index [BMI] 23.0-23.9, adult; E87.6 Hypokalemia; R32 Unspecified urinary incontinence; E78.1 Pure hyperglyceridemia
CPT/HCPCS: 36415; 71045; 74018; 74177; 74183; 80053; 81001; 83690; 83735; 84100; 84134; 84484; 85025; 85027; 87086; 93005; 96374; 96375; 96376; 99284; 99285; A9270; A9585; J1170; J1650; J3490; Q9963; Q9967; 81003

== ENCOUNTER 2022-09-25 14:48 | Outpatient (CLI) | payer MEDICARE, OTHER | END 2022-09-25 23:59 | disposition home or self-care (01) | LOC: EMS 14:48 | PROVIDERS: ATTEND Nurse Practitioner Gerontology | DX: R41.0 Disorientation, unspecified (principal); G20 Parkinson's disease; Z74.01 Bed confinement status | CPT/HCPCS: A0425; A0428 ==